=== PATIENT | female | born 1980 | race African-American/Black ===

== ENCOUNTER 2017-06-19 14:52 | Emergency (ER) | payer SELFPAY ==
[2017-06-19 15:24] LABS: Hematocrit 40.6 % (36.0-47.0); Mean Platelet Volume 10.1 fL (7.4-10.4); Red Blood Cell (RBC) Count 4.85 mill/uL (4.20-5.40); White Blood Cell (WBC) Count 9.1 thou/uL (4.8-10.8)
[2017-06-19 15:37] LABS: Neutrophil 35 % (42-75); Reactive Lymphocytes 8 % (0-10)
[2017-06-19 16:11] LABS: Bilirubin Negative (Negative); Blood, Urine Negative (Negative); Glucose, Urine (Dipstick) >=1000 mg/dL (Negative); Ketone, Urine Negative (Negative); Nitrite Negative (Negative); Protein, Urine (Dipstick) Negative (Neg-Trace)
[2017-06-19 16:29] LABS: ALT (SGPT) 19 U/L (8-55); AST (SGOT) 15 U/L (5-34); Alkaline Phosphatase 83 U/L (40-150); Anion Gap 10 mmol/L (10-20); BUN (Urea Nitrogen) 8 mg/dL (7.0-18.7); Bilirubin, Total 0.5 mg/dL (0.2-1.2); Calc. Creatinine Clearance 0 mL/min (70-130); Calcium 8.9 mg/dL (7.8-10.44); Carbon Dioxide 25 mmol/L (22-29); Chloride 103 mmol/L (98-107); Estimated GFR-MDRD Greater than 90; Globulin 2.8 g/dL (2.4-3.5); Lipase 23 U/L (8-78); Protein, Total 6.2 g/dL (6.0-8.3)
[2017-06-19] MEDS ORDERED: Ketorolac Tromethamine 60 MG/2 ML VIAL ONE (16:45)
[2017-06-19] MEDS ORDERED: Ondansetron ODT 8 MG TAB ONE (16:45)
== END 2017-06-19 17:21 | disposition home or self-care (01) ==
LOC: ERS 14:52
DX: R11.2 Nausea with vomiting, unspecified (principal); E11.9 Type 2 diabetes mellitus without complications
CPT/HCPCS: 36415; 36416; 80053; 81003; 81025; 83690; 85025; 96372; J1885

== ENCOUNTER 2017-09-22 09:41 | Emergency (ER) | payer SELFPAY | END 2017-09-22 11:24 | disposition home or self-care (01) | LOC: ERS 09:41 | DX: E11.65 Type 2 diabetes mellitus with hyperglycemia (principal); E11.40 Type 2 diabetes mellitus with diabetic neuropathy, unspecified | CPT/HCPCS: 36416; 99284 ==

== ENCOUNTER 2017-09-29 00:06 | Emergency (ER) | payer SELFPAY ==
[2017-09-29] MEDS ORDERED: Proparacaine 0.5% Opth 15 ML BOT ONE (03:18)
[2017-09-29] MEDS ORDERED: Fluorescein Opthalmic Strip ONE (03:20)
[2017-09-29 04:48] LABS: #Basophils 0.1 thou/uL (0.0-0.2); #Eosinphils 0.7 thou/uL (0.0-0.7); #Lymphocytes 3.5 thou/uL (1.20-3.40); #Monocytes 0.5 thou/uL (0.11-0.59); #Neutrophils 3.1 thou/uL (1.40-6.50); %Basophils 1.8 % (0.0-1.0); %Eosinophils 8.5 % (0.0-10.0); %Lymphocytes 44.7 % (21.0-51.0); Hemoglobin 12.8 g/dL (12.0-16.0); Mean Corpuscular Hemoglobin 27.1 pg (27.0-31.0); Mean Corpuscular Volume 84.9 fl (81.0-99.0); Mean Platelet Volume 10.2 fL (7.4-10.4); Platelet Count 220 thou/uL (130-400); RBC Distribution Width 14.3 % (11.5-14.5); Red Blood Cell (RBC) Count 4.73 mill/uL (4.20-5.40); White Blood Cell (WBC) Count 7.9 thou/uL (4.8-10.8)
[2017-09-29] MEDS ORDERED: Acetaminophen 500 MG TAB ONE (04:48)
[2017-09-29] MEDS ORDERED: Metoclopramide HCl 10 MG/2 ML VIAL ONE (04:48)
[2017-09-29 04:56] LABS: Anion Gap 13 mmol/L (10-20); BUN (Urea Nitrogen) 5 mg/dL (7.0-18.7); Calc. Creatinine Clearance 0 mL/min (70-130); Calcium 9.3 mg/dL (7.8-10.44); Carbon Dioxide 25 mmol/L (22-29); Chloride 103 mmol/L (98-107); Estimated GFR-MDRD Greater than 90; Glucose 323 mg/dL (70-105); Potassium 4.5 mmol/L (3.5-5.1); Sodium 136 mmol/L (136-145)
[2017-09-29 05:00] LABS: Pregnancy Test - Urine (BHCG) Negative (Negative); Pregu Control Background? CLEAR/WHITE (CLR/WHITE); Pregu Control Bar Appear? YES (CONTROL BAR); Specific Gravity 1.043 (1.002-1.036)
[2017-09-29] MEDS ORDERED: Ketorolac Tromethamine 30 MG/ML VIAL ONE (06:07)
[2017-09-29] MEDS ORDERED: Magnesium Sulfate 2 GM/100 ML BAG ONE (06:08)
--- NOTE | 2017-09-29 07:43 | CT ---
PRELIMINARY REPORT/[facility]/EMERGENCY AFTER HOURS PROCEDURE: EXAM: CT Head Without Intravenous Contrast CLINICAL HISTORY: 37 years old, female; Pain; Headache; Patient HX: F35 presents to ed C/O right eye pain. Pt reports t hat she woke up earlier tonight with the pain. Pt reports that her right eye is sensitive to light an d hurts more severely when she moves her eye or opens and closes her eyelid. No photophobia or proble ms with movement of her left eye. Pt denies any eye trauma or eye discharge. Pt states that she has h istory of headaches but this pain in her eye is much worse than she has ever previously experienced. Pt also reports head pain around eye. Pt does not wear contacts but has glasses. TECHNIQUE: Axial computed tomography images of the head/brain without intravenous contrast. COMPARISON: No relevant prior studies available. FINDINGS: Brain: Mild volume loss No hemorrhage. No significant white matter disease. No edema. Ventricles: Unremarkable. No ventriculomegaly. Bones/joints: Unremarkable. No acute fracture. Soft tissues: Unremarkable. Sinuses: Unremarkable as visualized. No acute sinusitis. Mastoid air cells: Unremarkable as visualized. No mastoid effusion. IMPRESSION: No intracranial hemorrhage.Please see discussion above. Thank you for allowing us to participate in the care of your patient. Dictated and Authenticated by: Anand Javier MD 09/29/2017 4:43 AM Central Time ([place] & [place]) FINAL REPORT CT BRAIN WITHOUT CONTRAST: I agree with the preliminary report given by Dr. Anand Javier of [facility]. POS: [facility]
== END 2017-09-29 08:05 | disposition home or self-care (01) ==
LOC: ERS 00:06
DX: G43.909 Migraine, unspecified, not intractable, without status migrainosus (principal); E11.9 Type 2 diabetes mellitus without complications; Z79.84 Long term (current) use of oral hypoglycemic drugs
CPT/HCPCS: 36415; 70450; 80048; 81025; 85025; 96361; 96365; 96375; J1885; J2765; J3475

== ENCOUNTER 2018-09-16 14:21 | Outpatient (CLI) | payer MEDICAID ==
--- NOTE | 2018-09-16 15:38 | ULT ---
TRANSABDOMINAL AND TRANSVAGINAL PELVIC ULTRASOUND: INDICATION: Pelvic pain. TECHNIQUE: Gallagher scale, color Doppler, and spectral Doppler images were obtained of the pelvis. FINDINGS: The uterus measures 9.3 x 5.9 x 5.2 cm. There is a 2.5 cm fibroid seen within the subendometrial lay er of the posterior uterine body that has intervally grown since the comparison examination where it measured up to 1.6 cm. The endometrial stripe measures 7 mm. The right ovary measures 4.4 x 3 x 2.4 cm. The left ovary measures 2.2 x 2.6 x 2.6 cm. There is nor mal flow to both ovaries. No free fluid is evident. IMPRESSION: Slight interval enlargement of the subendometrial fibroid involving the posterior uterine body. POS: [facility]
== END 2018-09-16 14:22 | disposition home or self-care (01) ==
LOC: BICULT 14:21
PROVIDERS: ATTEND Advanced Practice Midwife
DX: Z01.419 Encounter for gynecological examination (general) (routine) without abnormal findings (principal)
CPT/HCPCS: 76856

== ENCOUNTER 2018-10-22 13:30 | Outpatient (CLI) | payer MEDICAID | END 2018-10-22 13:31 | disposition home or self-care (01) | LOC: BICMAMMO 13:30 | PROVIDERS: ATTEND Advanced Practice Midwife | DX: N64.4 Mastodynia (principal) | CPT/HCPCS: 77066; G0279 ==

== ENCOUNTER 2019-02-26 11:36 | Emergency (ER) | payer MEDICAID, OTHER ==
[2019-02-26 12:21] LABS: #Eosinphils 0.1 thou/uL (0.0-0.7); #Lymphocytes 1.4 thou/uL (1.20-3.40); #Monocytes 0.4 thou/uL (0.11-0.59); #Neutrophils 6.2 thou/uL (1.40-6.50); %Basophils 0.4 % (0.0-1.0); %Eosinophils 1.7 % (0.0-10.0); %Lymphocytes 16.9 % (21.0-51.0); %Monocytes 4.9 % (0.0-10.0); %Neutrophils 76.2 % (42.0-75.0); Hemoglobin 13.9 g/dL (12.0-16.0); Mean Corpuscular HGB CONC 33.6 g/dL (32.0-36.0); Mean Corpuscular Hemoglobin 28.9 pg (27.0-31.0); Mean Platelet Volume 10.3 fL (7.4-10.4); Platelet Count 184 thou/uL (130-400); RBC Distribution Width 12.8 % (11.5-14.5); Red Blood Cell (RBC) Count 4.81 mill/uL (4.20-5.40); White Blood Cell (WBC) Count 8.1 thou/uL (4.8-10.8)
[2019-02-26] MEDS ORDERED: Lidocaine Viscous Sol 2% 15 ml UD Cup ONE (12:22)
[2019-02-26] MEDS ORDERED: Ondansetron ODT 8 MG TAB ONE (12:22)
[2019-02-26] MEDS ORDERED: Mag-Al 1200 mg/1200 mg/30 ML UDCUP ONE (12:22)
[2019-02-26 12:27] LABS: BHCG - Serum Negative (NEGATIVE); Pregs Control Background? CLEAR/WHITE (CLR/WHITE); Pregs Control Bar Appear? YES (CONTROL BAR)
[2019-02-26 12:45] LABS: ALT (SGPT) 17 U/L (8-55); AST (SGOT) 14 U/L (5-34); Albumin 3.5 g/dL (3.5-5.0); Alkaline Phosphatase 87 U/L (40-150); Anion Gap 15 mmol/L (10-20); BUN (Urea Nitrogen) 7 mg/dL (7.0-18.7); Bilirubin, Total 1.3 mg/dL (0.2-1.2); Calc. Creatinine Clearance 0 mL/min (70-130); Calcium 8.8 mg/dL (7.8-10.44); Carbon Dioxide 22 mmol/L (22-29); Chloride 106 mmol/L (98-107); Estimated GFR-MDRD Greater than 90; Globulin 2.9 g/dL (2.4-3.5); Glucose 277 mg/dL (70-105); Potassium 4.4 mmol/L (3.5-5.1); Protein, Total 6.4 g/dL (6.0-8.3); Sodium 139 mmol/L (136-145)
== END 2019-02-26 14:10 | disposition home or self-care (01) ==
LOC: ERS 11:36
DX: K29.70 Gastritis, unspecified, without bleeding (principal); E11.9 Type 2 diabetes mellitus without complications; Z79.84 Long term (current) use of oral hypoglycemic drugs
CPT/HCPCS: 36415; 80053; 84703; 85025; 96372; J0500

== ENCOUNTER 2019-04-20 07:49 | Inpatient (IN) | payer OTHER ==
[2019-04-20] MEDS ORDERED: Ibuprofen 200 MG TAB ONE (08:04)
[2019-04-20] MEDS ORDERED: Acetaminophen 500 MG TAB ONE (08:04)
[2019-04-20 08:36] LABS: Hemoglobin 12.3 g/dL (12.0-16.0); Mean Corpuscular HGB CONC 33.8 g/dL (32.0-36.0); Mean Corpuscular Hemoglobin 28.7 pg (27.0-31.0); Mean Corpuscular Volume 84.8 fL (78.0-98.0); Mean Platelet Volume 10.5 fL (7.4-10.4); Platelet Count 152 thou/uL (130-400); RBC Distribution Width 12.7 % (11.5-14.5); White Blood Cell (WBC) Count 11.5 thou/uL (4.8-10.8)
[2019-04-20 08:54] LABS: ALT (SGPT) 16 U/L (8-55); AST (SGOT) 16 U/L (5-34); Albumin 3.4 g/dL (3.5-5.0); Alkaline Phosphatase 137 U/L (40-150); Anion Gap 14 mmol/L (10-20); BUN (Urea Nitrogen) 7 mg/dL (7.0-18.7); Bilirubin, Total 0.9 mg/dL (0.2-1.2); Calc. Creatinine Clearance 0 mL/min (70-130); Carbon Dioxide 21 mmol/L (22-29); Chloride 104 mmol/L (98-107); Estimated GFR-MDRD Greater than 90; Globulin 3.3 g/dL (2.4-3.5); Glucose 298 mg/dL (70-105); Potassium 3.6 mmol/L (3.5-5.1); Protein, Total 6.7 g/dL (6.0-8.3); Sodium 135 mmol/L (136-145)
[2019-04-20 08:57] LABS: Band 22 % (5-11); Lymphocytes 9 % (21-51); MDiff Complete? YES; Monocytes 1 % (0-10); Neutrophil 68 % (42-75); RBC Morphology Normal
[2019-04-20 10:19] LABS: Bilirubin Negative (Negative); Blood, Urine 3+ (Negative); Clarity Clear (Clear); Glucose, Urine (Dipstick) Greater than 1000 mg/dL (Negative); Leukocyte 75 Leu/uL (Negative); Nitrite Negative (Negative); Protein, Urine (Dipstick) 30 mg/dL (Neg-Trace); RBC/HPF Greater than 50 HPF (0-3); Squamous Epithelial 0-3 HPF (0-3)
--- NOTE | 2019-04-20 10:21 | RAD ---
CHEST 1 VIEW: Date: 04/20/19 HISTORY: Fever, body aches, hyperventilation, dyspnea. FINDINGS: Bilateral vascular congestion. Heart size is within upper range of normal limits. IMPRESSION: Upper range of normal size heart. Prominent bilateral vascular congestion, which appears to be somewh at more congested than a prior 2013 study. No confluent pneumonia or overt edema. POS: OFF
[2019-04-20 10:30] LABS: Bacteria/HPF Rare-Few HPF (None Seen)
[2019-04-20 10:45] LABS: CKMB 1.3 ng/mL (0-6.6)
--- NOTE | 2019-04-20 11:43 | CT ---
Exam: CT angiogram of the chest HISTORY: Dyspnea. Pain. COMPARISON: None TECHNIQUE: CT angiogram of the chest is performed in the axial plane. Three-dimensional reformatted i mages are submitted for interpretation FINDINGS: Mediastinum: No mass, lymphadenopathy or hematoma. HEART: Normal size. No significant pericardial fluid. Aorta: No aneurysm or dissection Upper solid abdominal viscera: No abnormal enhancement. Nonspecific hypodensity likely representing a upper normal gastrohepatic lymph node measuring 0.7 x 1.0 cm Trachea and central bronchi: Patent Pleural spaces: No effusion Lung parenchyma: No masses or consolidation. Dependent atelectatic changes are noted. Pneumothorax: None Osseous structures: No lytic or blastic lesions Pulmonary arteries:Suboptimal evaluation the pulmonary arterial system due to poor timing of contrast bolus. Adequate contrast opacification of the central pulmonary arterial system, without filling defect. Evaluation the lobar, segmental and subsegmental arteries is limited. IMPRESSION: 1. Suboptimal evaluation pulmonary arterial system. No obvious central pulmonary artery embolism.
[2019-04-20] MEDS ORDERED: Piperacillin/Tazobactam 4.5 GM VIAL ONE (12:41)
[2019-04-20] MEDS ORDERED: Dextrose 5% in Water 1,000 ML IV PRN (13:37)
[2019-04-20] MEDS ORDERED: Dextrose 50% Abboject 50 ML SYRINGE SLOW IVP PRN (13:37)
[2019-04-20] MEDS ORDERED: Sodium Chloride 0.9% 1,000 ML IV SCH (13:45)
[2019-04-20] MEDS ORDERED: ISOVUE-370 76%-LOCM 1 ML ONE (13:56)
[2019-04-20 14:09] LABS: BHCG - Serum Negative (NEGATIVE); Pregs Control Background? CLEAR/WHITE (CLR/WHITE); Pregs Control Bar Appear? YES (CONTROL BAR)
[2019-04-20 14:14] LABS: Troponin I 0.052 ng/mL (< 0.028)
[2019-04-20] MEDS ORDERED: Ibuprofen 600 MG TAB PO PRN (14:14)
[2019-04-20] MEDS ORDERED: Senokot S 8.6-50 MG TAB PO PRN (14:45)
[2019-04-20 15:43] VITALS: BMI 45.8
[2019-04-20] MEDS: Piperacillin/Tazobactam 3.375 GM in Sodium Chloride 0.9% 100 ML IVPB SCH (18:03)
[2019-04-20] MEDS: Acetaminophen 325 MG TAB PO PRN (18:03)
[2019-04-20] MEDS: HumaLOG 300 UNITS/3 ML VIAL SC PRN (18:21)
[2019-04-20] MEDS: traMADol HCl 50 MG TAB PO PRN (20:22)
--- NOTE | 2019-04-20 20:35 | HP ---
CHIEF COMPLAINT: Fever, generalized body aches and pains. HISTORY OF PRESENT ILLNESS: The patient is a 38-year-old female with history of diabetes, who presents to the hospital with complaints of generalized body aches and pains and fever for the past 3 days. 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 The following day, she had a fever of 102.0. Denies any nausea, vomiting, or diarrhea. She did have some chills. No cough. No rhinorrhea. No sore throat. She also states that she has been having a low appetite; however, she is able to keep her liquids down. She has had no dysuria or any urinary symptoms. No chest pain, however, she did have some shortness of breath today, which concerned her, so she came into the hospital for further evaluation. She does have a 3-year-old child, who had some rhinorrhea. PAST MEDICAL HISTORY: Diabetes. PAST SURGICAL HISTORY: Two C-sections and tonsillectomy. ALLERGIES: NO KNOWN DRUG ALLERGIES. MEDICATIONS: She takes glipizide, does not know the dose. REVIEW OF SYSTEMS: All negative except for the ones mentioned above in the HPI. FAMILY HISTORY: Mother had cancer and hypertension. LABORATORY RESULTS: As of the following; WBCs of 11.5, however her bands were 22. Her ESR was 82. Chemistry; sodium of 135, potassium of 3.6, BUN of 7, creatinine 0.68, glucose of 298. Lactic acid was 1.3. Troponin initially was 0.061. BNP was 62.7. test was negative. LFTs were normal. Her urinalysis indicated a leukocyte esterase of 75, wbc's of 4 to 6, rare bacteria, no squamous epithelial cells. She did have a CTA, this was a suboptimal study, however, there was no pneumonia noted. No obvious central pulmonary embolism was noted. EKG, she had no ST-elevation or depression. PHYSICAL EXAMINATION: VITAL SIGNS: As of the following; temperature of 98.8, heart rate of 110, blood pressure of 96/60, and 100% on 2 L. GENERAL: She is awake, alert, and oriented x3. Does not appear in any distress. HEENT: Normocephalic and atraumatic. No lymphadenopathy noted. Pupils are equal and reactive to light. CV: S1 and S2 present. No murmurs, rubs, or gallops. LUNGS: Clear to auscultation. No rhonchi or wheezes noted. ABDOMEN: Soft and nontender. Bowel sounds are present x2. EXTREMITIES: No edema. Pedal pulses are present x2. NEUROVASCULAR: There were no focal deficits noted. Lower extremity; she does have some pain upon palpation to her right and left lower back area. SKIN: No cuts, lesions, or bruises noted. ASSESSMENT AND PLAN: The patient is a 38-year-old female, who presents to the hospital with complaints of generalized body aches and pains and fever. 1. Sepsis. She does have leukocytosis. She was tachycardic and she had a fever at home, unknown etiology. We will do blood cultures. Urine culture is pending. We will treat her with broad-spectrum antibiotics for now. This also could be just a viral infection. 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 We will continue to monitor. 2. Diabetes. We will put on sliding scale insulin and check Accu-Cheks before meals and at bedtime. 3. Obesity, educated on weight loss diet and exercise. 4. Deep venous thrombosis prophylaxis. We will put the patient on some SCDs and Lovenox. Job ID: [id number]
[2019-04-20] MEDS ORDERED: Ketorolac Tromethamine 30 MG/ML VIAL IVP SCH (23:00)
[2019-04-21] MEDS: Piperacillin/Tazobactam 3.375 GM in Sodium Chloride 0.9% 100 ML IVPB SCH ×4 (00:35→22:00)
[2019-04-21] MEDS ORDERED: Ibuprofen 600 MG TAB PO PRN (05:00)
[2019-04-21 06:14] LABS: #Eosinphils 0.1 thou/uL (0.0-0.7); #Lymphocytes 1.9 thou/uL (1.20-3.40); #Neutrophils 5.8 thou/uL (1.40-6.50); %Basophils 0.2 % (0.0-1.0); %Eosinophils 0.6 % (0.0-10.0); %Lymphocytes 21.9 % (21.0-51.0); %Monocytes 10.8 % (0.0-10.0); %Neutrophils 66.4 % (42.0-75.0); Hemoglobin 10.9 g/dL (12.0-16.0); Mean Corpuscular HGB CONC 31.8 g/dL (32.0-36.0); Mean Corpuscular Hemoglobin 27.2 pg (27.0-31.0); Mean Corpuscular Volume 85.7 fL (78.0-98.0); Mean Platelet Volume 10.7 fL (7.4-10.4); Platelet Count 154 thou/uL (130-400); RBC Distribution Width 12.6 % (11.5-14.5); White Blood Cell (WBC) Count 8.8 thou/uL (4.8-10.8)
[2019-04-21 06:38] LABS: ALT (SGPT) 14 U/L (8-55); AST (SGOT) 23 U/L (5-34); Alkaline Phosphatase 94 U/L (40-150); Anion Gap 12 mmol/L (10-20); BUN (Urea Nitrogen) 6 mg/dL (7.0-18.7); Bilirubin, Total 0.7 mg/dL (0.2-1.2); Calc. Creatinine Clearance 233 mL/min (70-130); Calcium 8.5 mg/dL (7.8-10.44); Carbon Dioxide 23 mmol/L (22-29); Chloride 105 mmol/L (98-107); Estimated GFR-MDRD Greater than 90; Globulin 3.1 g/dL (2.4-3.5); Glucose 226 mg/dL (70-105); Potassium 3.9 mmol/L (3.5-5.1); Protein, Total 6.1 g/dL (6.0-8.3); Sodium 136 mmol/L (136-145)
[2019-04-21 07:45] LABS: Hemoglobin A1c 10.4 % (4.0-6.0)
[2019-04-21] MEDS ORDERED: Insulin Glargine 5 UNITS in Pre-Filled Syringe 1 EACH SC SCH (09:29)
[2019-04-21] MEDS: glipiZIDE 10 MG TAB PO SCH (09:32)
[2019-04-21] MEDS: Enoxaparin Sodium 40 MG/0.4 ML SYRINGE SC SCH (09:32)
[2019-04-21] MEDS: Aspirin 81 mg Enteric Coated Tablet PO SCH (09:32)
[2019-04-21] MEDS ORDERED: Famotidine 20 MG TAB PO SCH (09:45)
[2019-04-21] MEDS: Ketorolac Tromethamine 30 MG/ML VIAL IVP PRN ×2 (09:59→16:51)
--- NOTE | 2019-04-21 11:27 | PDOC.HOSPP ---
- Subjective Encounter Date: 04/21/19 Encounter Time: 10:15 Subjective: pt up in bed is diaphoretic. - Objective Vital Signs & Weight: Vital Signs (12 hours) Temp Pulse Resp BP BP Pulse Ox 04/21/19 09:27 99.1 F 109 H 18 137/92 H 98 04/21/19 03:00 97.1 F L 101 H 18 125/72 93 L Weight Weight 283 lb 14.4 oz I&O: 04/20/19 04/21/19 04/22/19 06:59 06:59 06:59 Intake Total 450 Output Total 550 Balance -100 Result Diagrams: 04/21/19 05:20 04/21/19 05:20 Additional Labs: Accuchecks 04/21/19 04/20/19 04/20/19 05:48 20:44 17:29 POC Glucose 213 H 234 H 199 H ROS - Review of Systems Respiratory: denies: cough, dry, shortness of breath, hemoptysis, SOB with excertion, pleuritic pain, sputum, wheezing, other Cardiovascular: denies: chest pain, palpitations, orthopnea, paroxysmal noc. dyspnea, edema, light headedness, other Musculoskeletal: reports: back pain - Medication Medications: Active Medications Generic Name Dose Route Start Last Admin Trade Name Freq PRN Reason Stop Dose Admin Acetaminophen 650 mg 04/20/19 14:45 04/20/19 18:03 Tylenol PO 650 mg Q4H PRN Administration Headache/Fever/Mild Pain (1-3) Aspirin 81 mg 04/21/19 09:00 04/21/19 09:32 Ecotrin PO 81 mg DAILY JESSEE Administration Enoxaparin Sodium 40 mg 04/21/19 09:00 04/21/19 09:32 Lovenox SC 40 mg 0900 JESSEE Administration Famotidine 20 mg 04/21/19 09:45 04/21/19 09:59 Pepcid PO 04/21/19 11:45 20 mg NOW JESSEE Administration Glipizide 20 mg 04/21/19 09:00 04/21/19 09:32 Glucotrol PO 20 mg DAILY JESSEE Administration Piperacillin Sod/Tazobactam 100 mls @ 200 mls/hr 04/20/19 18:00 04/21/19 05: 49 Sod 3.375 gm/ Sodium Chloride IVPB 100 mls Q6HR JESSEE Administration Insulin Human Lispro 0 units 04/20/19 13:37 04/20/19 18:21 Humalog SC 2 units .MILD SLIDING SCALE PRN Administration Mild Correctional Scale Ketorolac Tromethamine 15 mg 04/21/19 09:20 04/21/19 09:59 Toradol IVP 15 mg Q6H PRN Administration Moderate Pain (4-6) Sodium Chloride 10 ml 04/21/19 09:00 04/21/19 10:00 Flush - Normal Saline IVF 10 ml Q12HR JESSEE Administration Tramadol HCl 50 mg 04/20/19 19:35 04/20/19 20:22 Ultram PO 50 mg Q4H PRN Administration Moderate Pain (4-6) - Exam Heart: negative: RRR, no murmur, no gallops, no rubs, normal peripheral pulses, irregular, diminshed peripheral pulses, murmur present, II/IV, III/IV Respiratory: negative: CTAB, no wheezes, no rales, no ronchi, normal chest expansion, no tachypnea, normal percussion, rales, rhonchi, tachypneic, wheezes Gastrointestinal: negative: soft, non-tender, non-distended, normal bowel sounds , no palpable masses, no hepatomegaly, no splenomegaly, no bruit, no guarding, no rigidity, tender to palpation, distended, diminished bowl sounds, voluntary guarding Hosp A/P (1) Sepsis Code(s): A41.9 - SEPSIS, UNSPECIFIED ORGANISM Status: Acute (2) UTI (urinary tract infection) Status: Acute (3) Bacteremia Code(s): R78.81 - BACTEREMIA Status: Acute - Plan will continue abx for onw, will get ct abd/pel. will consult ID. will start her on iv fluids.
[2019-04-21] MEDS: Sodium Chloride 0.9% 1,000 ML IV SCH (11:57)
[2019-04-21] MEDS: HumaLOG 300 UNITS/3 ML VIAL SC PRN (11:57)
--- NOTE | 2019-04-21 13:32 | CT ---
EXAM: CT ABDOMEN AND PELVIS HISTORY: Fever. Bacteremia. Nausea. COMPARISON: None. Procedure: Multiple contiguous axial images were obtained and a CT of the abdomen and pelvis with IV contrast. C oronal reformats were performed. FINDINGS: Lower Chest: Small bilateral effusions. Bibasilar consolidation may be due to atelectasis, aspiration or pneumonia Vessels: Normal caliber aorta. Heart: Normal heart size. No significant pericardial fluid Abdomen: Portal vein:Patent Gallbladder: No calcified gallstones. Normal caliber wall. Liver: within normal limits. Pancreas: within normal limits. Spleen: within normal limits. Adrenals: within normal limits. Kidneys: Symmetric enhancement. No obstructive uropathy. Peritoneum: No ascites or free air, no fluid collection. Bowel: No evidence of small bowel obstruction. Ileocecal junction is normal. Normal caliber appendix. Scattered diverticula. No diverticulitis. Mesentery and Retroperitoneum: No enlarged mesenteric or retroperitoneal lymph nodes. Abdominal Wall: Small umbilical hernia containing mesenteric fat Pelvis: Reproductive Organs: Uterus is unremarkable. Left adnexa is unremarkable. There is a hypodensity eman ating from the right adnexa with attenuation coefficient of 7.8 Hounsfield units. 3.6 x 3.3 cm right ovarian cyst is favored. Pelvis: Small amount of free fluid in the pelvis. Bladder: within normal limits. Bones: within normal limits. IMPRESSION: 1. No acute abnormality in the abdomen or pelvis 2. Normal caliber appendix 3. No evidence of a small bowel obstruction 4. Right ovarian cyst. Follow-up ultrasound in 6-8 weeks to ensure resolution. 5. Bilateral pleural effusions with lung parenchymal consolidation likely due to atelectasis, aspirat ion or pneumonia.
[2019-04-21] MEDS ORDERED: Ondansetron PF 4 MG/2 ML Vial IVP PRN (13:55)
[2019-04-21] MEDS ORDERED: Iopamidol 370 76% 100 ML VIAL ONE (16:15)
[2019-04-21] MEDS ORDERED: Lidocaine 2% Viscous Solution 20 ML, Aluminum & Magnesium Hydroxide 30 ML, Donnatal Eli... SSW SCH (18:00)
--- NOTE | 2019-04-21 18:34 | CON ---
DATE OF CONSULTATION: REASON FOR CONSULT: Bacteremia. HISTORY OF PRESENT ILLNESS: A 38-year-old, who has a history of type 2 diabetes and admitted with general malaise, myalgias, and fever for the past 3 days before admission. She had increased urinary frequency, but denies dysuria, but she did have flank pain on both sides. Some headaches. No visual symptoms. No vomiting, hematemesis, or melena. No chest pain. No diarrhea. No bleeding. No neurological symptoms. PAST MEDICAL HISTORY: Type 2 diabetes. PAST SURGICAL HISTORY: . ALLERGIES: NONE. FAMILY HISTORY: Cancer, hypertension. CURRENT MEDICATIONS: 1. Tylenol. 2. Ecotrin. 3. Lovenox. 4. Pepcid. 5. Glucotrol. 6. Insulin. 7. Ketorolac. 8. Zosyn. PHYSICAL EXAMINATION: VITAL SIGNS: T-max 99, blood pressure 150/95, pulse 95, respirations 16, and O2 saturation 97. GENERAL: Voiding in the toilet. SKIN: Normal. No lymphadenopathy. Peripheral IV access. HEENT: Ocular movements conjugate. Oral cavity normal. NECK: Supple. LUNGS: Symmetric. Clear breath sounds. HEART: S1 and S2 regular rate. ABDOMEN: Soft, not distended, with mild tenderness in mid abdominal area, right and left side. No rebound tenderness. : Bladder not distended. EXTREMITIES: No joint inflammatory activity. Moves extremities equally. NEUROLOGIC: Cognitive function appears to be intact. LABORATORY DATA: White cell count is 11.5 and now 8.8, hemoglobin 10.9, platelets 154 with normal differential, and hemoglobin A1c 10.4. Liver profile normal. Albumin 3.0. Urinalysis with 4 to 6 wbc's and cultures with E. coli in one sample of urine culture. The blood culture with E. coli as well, pending susceptibilities. IMAGING STUDIES: Includes an abdomen and pelvis CT with no significant findings , except for some pleural effusions and some atelectases. CT angio with suboptimal evaluation of pulmonary arterial system, but no obvious PE. ASSESSMENT AND PLAN: General malaise with Escherichia coli pyelonephritis, evaluate postvoid residual to rule out urinary retention, and wait on final susceptibilities to work on discharge planning per hopefully on oral antimicrobial therapy for 7 to 10 days as long as she has no urinary retention. No other structural abnormalities detected. The patient with the usual risk factor for premenopausal UTI, and does not need prophylaxis at this point in time yet. Job ID: [id number] MTDD
[2019-04-21] MEDS: Famotidine 20 MG TAB PO SCH (22:00)
[2019-04-22] MEDS: Ketorolac Tromethamine 30 MG/ML VIAL IVP PRN ×2 (00:10→11:11)
[2019-04-22] MEDS: Piperacillin/Tazobactam 3.375 GM in Sodium Chloride 0.9% 100 ML IVPB SCH (04:51)
[2019-04-22] MEDS: Sodium Chloride 0.9% 1,000 ML IV SCH (04:52)
[2019-04-22] MEDS: Aspirin 81 mg Enteric Coated Tablet PO SCH (08:51)
[2019-04-22] MEDS: glipiZIDE 10 MG TAB PO SCH (08:51)
[2019-04-22] MEDS: Famotidine 20 MG TAB PO SCH (08:52)
[2019-04-22] MEDS: Enoxaparin Sodium 40 MG/0.4 ML SYRINGE SC SCH (08:52)
[2019-04-22] MEDS: Insulin Glargine 5 UNITS in Pre-Filled Syringe 1 EACH SC SCH (08:52)
[2019-04-22 10:15] LABS: Troponin I 0.018 ng/mL (< 0.028)
--- NOTE | 2019-04-22 11:37 | PDOC.HOSPP ---
- Subjective Encounter Date: 04/22/19 Encounter Time: 11:30 Subjective: pt up in bed complains of nausea - Objective Vital Signs & Weight: Vital Signs (12 hours) Temp Pulse Resp BP Pulse Ox 04/22/19 08:00 98 04/22/19 07:51 98.9 F 93 16 129/83 98 04/22/19 03:46 99.7 F H 103 H 17 162/79 H 95 04/22/19 00:00 99.1 F Weight Weight 289 lb 1.6 oz I&O: 04/21/19 04/22/19 04/23/19 06:59 06:59 06:59 Intake Total 450 1910 Output Total 550 1300 Balance -100 610 Result Diagrams: 04/21/19 05:20 04/21/19 05:20 Additional Labs: Accuchecks 04/22/19 04/21/19 04/21/19 05:51 20:17 17:19 POC Glucose 248 H 243 H 171 H 04/21/19 11:26 POC Glucose 209 H ROS - Review of Systems Respiratory: denies: cough, dry, shortness of breath, hemoptysis, SOB with excertion, pleuritic pain, sputum, wheezing, other Cardiovascular: denies: chest pain, palpitations, orthopnea, paroxysmal noc. dyspnea, edema, light headedness, other Gastrointestinal: reports: nausea Genitourinary: denies: dysuria, frequency, incontinence, hematuria, retention, other - Medication Medications: Active Medications Generic Name Dose Route Start Last Admin Trade Name Freq PRN Reason Stop Dose Admin Acetaminophen 650 mg 04/20/19 14:45 04/20/19 18:03 Tylenol PO 650 mg Q4H PRN Administration Headache/Fever/Mild Pain (1-3) Aspirin 81 mg 04/21/19 09:00 04/22/19 08:51 Ecotrin PO 81 mg DAILY JESSEE Administration Enoxaparin Sodium 40 mg 04/21/19 09:00 04/22/19 08:52 Lovenox SC 40 mg 0900 JESSEE Administration Famotidine 20 mg 04/21/19 21:00 04/22/19 08:52 Pepcid PO 20 mg BID JESSEE Administration Glipizide 20 mg 04/21/19 09:00 04/22/19 08:51 Glucotrol PO 20 mg DAILY JESSEE Administration Insulin Glargine 5 units/ 0.05 mls @ 0 mls/hr 04/22/19 09:00 04/22/19 08:52 Miscellaneous Medication SC 0.05 mls QAM JESSEE Administration Sodium Chloride 1,000 mls @ 70 mls/hr 04/21/19 11:30 04/22/19 04:52 Normal Saline 0.9% IV 1,000 mls .[id number] JESSEE Administration Insulin Human Lispro 0 units 04/20/19 13:37 04/21/19 11:57 Humalog SC 3 units .MILD SLIDING SCALE PRN Administration Mild Correctional Scale Ketorolac Tromethamine 15 mg 04/21/19 09:20 04/22/19 00:10 Toradol IVP 15 mg Q6H PRN Administration Moderate Pain (4-6) Ondansetron HCl 4 mg 04/21/19 13:55 04/21/19 15:56 Zofran IVP 4 mg Q6H PRN Administration Nausea/Vomiting Sodium Chloride 10 ml 04/21/19 09:00 04/22/19 08:54 Flush - Normal Saline IVF Not Given Q12HR JESSEE Tramadol HCl 50 mg 04/20/19 19:35 04/20/19 20:22 Ultram PO 50 mg Q4H PRN Administration Moderate Pain (4-6) - Exam Neck: negative: supple, symmetric, no JVD, no thyromegaly, no lymphadenopathy, no carotid bruit, JVD Heart: negative: RRR, no murmur, no gallops, no rubs, normal peripheral pulses, irregular, diminshed peripheral pulses, murmur present, II/IV, III/IV Respiratory: negative: CTAB, no wheezes, no rales, no ronchi, normal chest expansion, no tachypnea, normal percussion, rales, rhonchi, tachypneic, wheezes Hosp A/P (1) Sepsis Code(s): A41.9 - SEPSIS, UNSPECIFIED ORGANISM Status: Acute (2) UTI (urinary tract infection) Status: Acute (3) Bacteremia Code(s): R78.81 - BACTEREMIA Status: Acute - Plan will continue abx for onw, will get ct abd/pel. will consult ID. will start her on iv fluids. 04/22 will change her abx to levaquin. echo does not show any acute process. will add protonix.
[2019-04-22] MEDS ORDERED: Saccharomyces boulardii 250 MG CAP PO SCH (12:30)
[2019-04-22] MEDS: HumaLOG 300 UNITS/3 ML VIAL SC PRN ×2 (13:08→21:30)
[2019-04-22] MEDS: traMADol HCl 50 MG TAB PO PRN (20:02)
[2019-04-22] MEDS: Pantoprazole 40 MG VIAL IVP SCH (20:04)
[2019-04-23] MEDS: Acetaminophen 325 MG TAB PO PRN (08:29)
[2019-04-23] MEDS: Aspirin 81 mg Enteric Coated Tablet PO SCH (08:29)
[2019-04-23] MEDS: glipiZIDE 10 MG TAB PO SCH (08:29)
[2019-04-23] MEDS: Enoxaparin Sodium 40 MG/0.4 ML SYRINGE SC SCH (08:29)
[2019-04-23] MEDS: Pantoprazole 40 MG VIAL IVP SCH (08:30)
[2019-04-23] MEDS ORDERED: Saccharomyces boulardii 250 MG CAP PO SCH (09:00)
[2019-04-23] MEDS: Insulin Glargine 5 UNITS in Pre-Filled Syringe 1 EACH SC SCH (10:40)
[2019-04-23] MEDS: HumaLOG 300 UNITS/3 ML VIAL SC PRN (12:11)
[2019-04-23 12:38] VITALS: TEMP 98.4
--- NOTE | 2019-04-23 15:22 | EKG ---
Test Reason : Blood Pressure : / mmHG Vent. Rate : 109 BPM Atrial Rate : 109 BPM P-R Int : 168 ms QRS Dur : 102 ms QT Int : 368 ms P-R-T Axes : 053 -14 038 degrees QTc Int : 495 ms Sinus tachycardia Cannot rule out Inferior infarct , age undetermined Abnormal ECG Confirmed by VANESSA IRVIN DO ([id number]), photo editor LAUREN FUENTES ([id number]) on 04/23/2019 3:21:32 PM Referred By: Confirmed By:VANESSA IRVIN DO
[2019-04-23 16:37] VITALS: BP 138/91
== END 2019-04-23 16:48 | disposition home or self-care (01) | DRG 872 ==
LOC: ERS 07:49 → 2NO 12:46
PROVIDERS: ADMIT Internal Medicine; ATTEND Internal Medicine
DX: A41.9 Sepsis, unspecified organism (principal); N12 Tubulo-interstitial nephritis, not specified as acute or chronic; Z68.42 Body mass index [BMI] 45.0-49.9, adult; R35.0 Frequency of micturition; E11.9 Type 2 diabetes mellitus without complications; B96.20 Unspecified Escherichia coli [E. coli] as the cause of diseases classified elsewhere; E66.9 Obesity, unspecified; Z79.4 Long term (current) use of insulin; Z79.899 Other long term (current) drug therapy
CPT/HCPCS: 36415; 36416; 71045; 71275; 74177; 80053; 81003; 81015; 82533; 82553; 83036; 83605; 83690; 83880; 84484; 84703; 85025; 85652; 87040; 87077; 87086; 87149; 87186; 87804; 93005; 93306; 96361; 96365; 96367; C9113; J1650; J1815; J1885; J1956; J2405; J2543; J3370; J3490; Q9966; Q9967

== ENCOUNTER 2019-09-11 18:51 | Emergency (ER) | payer OTHER ==
[~2019-09-11 18:51] MED LIST: Iopamidol-370 76% 500 ML 1 ML ONE
[2019-09-11 19:29] LABS: Bilirubin Negative (Negative); Blood, Urine Negative (Negative); Clarity Clear (Clear); Glucose, Urine (Dipstick) Greater than 1000 mg/dL (Negative); Leukocyte Negative Leu/uL (Negative); Nitrite Negative (Negative); Protein, Urine (Dipstick) Negative (Neg-Trace); Urobilinogen Normal mg/dL (Less than 2)
[2019-09-11] MEDS ORDERED: Fentanyl 100 MCG/2 ML VIAL ONE (19:38)
[2019-09-11] MEDS ORDERED: Ondansetron PF 4 MG/2 ML Vial ONE (19:38)
[2019-09-11 19:45] LABS: BHCG - Serum Negative (NEGATIVE); Pregs Control Background? CLEAR/WHITE (CLR/WHITE); Pregs Control Bar Appear? YES (CONTROL BAR)
[2019-09-11 19:55] LABS: #Basophils 0.1 thou/uL (0.0-0.2); #Eosinphils 0.4 thou/uL (0.0-0.7); #Lymphocytes 4.2 thou/uL (1.20-3.40); #Monocytes 0.5 thou/uL (0.11-0.59); %Basophils 1.2 % (0.0-1.0); %Eosinophils 4.7 % (0.0-10.0); %Lymphocytes 45.3 % (21.0-51.0); %Monocytes 5.3 % (0.0-10.0); %Neutrophils 43.5 % (42.0-75.0); Hemoglobin 12.3 g/dL (12.0-16.0); Mean Corpuscular HGB CONC 31.4 g/dL (32.0-36.0); Mean Corpuscular Hemoglobin 24.5 pg (27.0-31.0); Mean Corpuscular Volume 78.1 fL (78.0-98.0); RBC Distribution Width 14.3 % (11.5-14.5); White Blood Cell (WBC) Count 9.2 thou/uL (4.8-10.8)
[2019-09-11 19:56] LABS: Mean Platelet Volume 11.2 fL (7.4-10.4); Platelet Count 248 thou/uL (130-400)
[2019-09-11 20:01] LABS: ALT (SGPT) 15 U/L (8-55); AST (SGOT) 13 U/L (5-34); Albumin 3.6 g/dL (3.5-5.0); Alkaline Phosphatase 78 U/L (40-110); Anion Gap 11 mmol/L (10-20); BUN (Urea Nitrogen) 11 mg/dL (7.0-18.7); Bilirubin, Total 0.5 mg/dL (0.2-1.2); Calc. Creatinine Clearance 0 mL/min (70-130); Calcium 9.3 mg/dL (7.8-10.44); Carbon Dioxide 23 mmol/L (22-29); Chloride 105 mmol/L (98-107); Estimated GFR-MDRD Greater than 90; Globulin 3.1 g/dL (2.4-3.5); Glucose 299 mg/dL (70-105); Lipase 28 U/L (8-78); Protein, Total 6.7 g/dL (6.0-8.3); Sodium 135 mmol/L (136-145)
--- NOTE | 2019-09-11 20:13 | CT ---
CT OF THE ABDOMEN AND PELVIS WITH IV CONTRAST INDICATION: Lower abdominal pain COMPARISON: CT the abdomen and pelvis dated April 21, [address] of the chest dated April 20, 2019 . FINDINGS: ABDOMEN: Lung bases: Clear Liver: There is a 8 mm hypodensity within segment 7 of the right hepatic lobe on image 25 series 2. T here is a 10 mm hypodensity within the right hepatic dome image 15 series 2. The smaller 8 mm lesion demonstrates areas of peripheral nodular discontinuous enhancement which was also present on t he comparison examinations. These are suspicious for small hemangioma Gallbladder: Contracted Pancreas: Normal. Adrenal glands: Normal. Spleen: Normal. Kidneys and ureters: Normal. No hydronephrosis. Vasculature: Normal. Lymph nodes:No lymphadenopathy. Free fluid in abdomen:No free fluid is evident. PELVIS: Small and large bowel: Normal Appendix:Normal Bladder: Normal. Rectal and perirectal soft tissues:Normal. Reproductive structures: Normal. Free fluid in pelvis: No free fluid is evident. Lymphadenopathy pelvis: No lymphadenopathy is evident. Osseous structures: No acute osseous abnormality. No destructive osteolytic or osteoblastic lesion i s identified. Soft tissues:Normal. IMPRESSION: 1. No acute abnormality. 2. Stable tiny hypodensities within the right hepatic lobe suspicious for small hemangioma. Nonemerge nt MR of the abdomen utilizing hemangioma protocol is recommended for additional characterization.
[2019-09-11] MEDS ORDERED: Ketorolac Tromethamine 30 MG/ML VIAL ONE (20:16)
== END 2019-09-11 20:38 | disposition home or self-care (01) ==
LOC: ERS 18:51
DX: R10.32 Left lower quadrant pain (principal); E11.9 Type 2 diabetes mellitus without complications; E78.00 Pure hypercholesterolemia, unspecified; Z79.4 Long term (current) use of insulin
CPT/HCPCS: 74177; 80053; 81003; 83690; 84703; 85025; 87086; 93005; 96361; 96374; 96375; J1885; J2405; J3010; Q9967

== ENCOUNTER 2019-10-02 03:03 | Emergency (ER) | payer OTHER | END 2019-10-02 03:24 | disposition left against medical advice (07) | LOC: ERS 03:03 | DX: Z53.21 Procedure and treatment not carried out due to patient leaving prior to being seen by health care provider (principal) ==

== ENCOUNTER 2019-11-24 15:24 | Outpatient (CLI) | payer OTHER ==
--- NOTE | 2019-11-24 16:07 | ULT ---
RIGHT UPPER QUADRANT ULTRASOUND: 11/24/19 HISTORY: Right upper quadrant pain. FINDINGS: The liver demonstrates increased echogenicity consistent with fatty infiltration without focal mass o r intrahepatic ductal dilatation. No gallstones, gallbladder wall thickening or pericholecystic fluid is seen. The common duct measures 3 mm in diameter. The tail of the pancreas is not visualized. The visualized portions of the pancreas and the right kidney appear normal. No free fluid is seen. IMPRESSION: 1. Fatty liver. 2. No evidence of cholelithiasis. POS: [facility]
== END 2019-11-24 15:25 | disposition home or self-care (01) ==
LOC: SCSULT 15:24
PROVIDERS: ATTEND Student in an Organized Health Care Education/Training Program
DX: R10.11 Right upper quadrant pain (principal); K76.0 Fatty (change of) liver, not elsewhere classified
CPT/HCPCS: 76705; 80053

== ENCOUNTER 2019-12-30 10:15 | Outpatient (CLI) | payer OTHER ==
--- NOTE | 2019-12-30 14:44 | MRI ---
MR OF THE LEFT SHOULDER WITHOUT CONTRAST: 12/30/19 INDICATION: Left muscular strain and concern for tendon tear of the left rotator cuff. COMPARISON: None. TECHNIQUE: Multiplanar and multisequence MR images were obtained of the left shoulder without IV contrast. FINDINGS: There is moderate tendinosis of the supraspinatus and infraspinatus without evidence of a definite fu ll thickness tear. There is mild to moderate tendinosis of the intra-articular biceps tendon without evidence of obstruction. The biceps tendon is located. No overt paralabral cyst is evident. There is a small amount of fluid in the subacromial subdeltoid space. There is AC joint osteoarthrosis. No os acromiale is evident. IMPRESSION: 1. Tendinosis of the supraspinatus, infraspinatus and long head of the biceps tendon. No full th ickness tear is grossly evident. 2. Mild fluid distention of the subacromial subdeltoid bursa may reflect mild bursitis. 3. Mild AC joint osteoarthrosis. POS: [facility]
== END 2019-12-30 10:16 | disposition home or self-care (01) ==
LOC: BICMRI 10:15
PROVIDERS: ATTEND Family Medicine
DX: S46.012D Strain of muscle(s) and tendon(s) of the rotator cuff of left shoulder, subsequent encounter (principal); M19.012 Primary osteoarthritis, left shoulder; M75.92 Shoulder lesion, unspecified, left shoulder; M62.89 Other specified disorders of muscle

== ENCOUNTER 2020-04-19 15:49 | Inpatient (IN) | payer OTHER ==
[2020-04-19 16:41] VITALS: BP 113/63; TEMP 98; BMI 51.7
[2020-04-19 17:15] LABS: #Eosinphils 0.3 thou/uL (0.0-0.7); #Lymphocytes 2.7 thou/uL (1.20-3.40); #Monocytes 0.4 thou/uL (0.11-0.59); %Basophils 0.4 % (0.0-1.0); %Eosinophils 3.7 % (0.0-10.0); %Lymphocytes 31.9 % (21.0-51.0); Hemoglobin 11.8 g/dL (12.0-16.0); Mean Corpuscular HGB CONC 33.8 g/dL (32.0-36.0); Mean Corpuscular Hemoglobin 29.7 pg (27.0-31.0); Mean Platelet Volume 10.6 fL (7.4-10.4); Platelet Count 162 thou/uL (130-400); RBC Distribution Width 13.4 % (11.5-14.5); Red Blood Cell (RBC) Count 3.98 mill/uL (4.20-5.40); White Blood Cell (WBC) Count 8.5 thou/uL (4.8-10.8)
[2020-04-19 17:37] LABS: ALT (SGPT) 12 U/L (8-55); AST (SGOT) 12 U/L (5-34); Albumin 2.9 g/dL (3.5-5.0); Alkaline Phosphatase 113 U/L (40-110); Anion Gap 11 mmol/L (10-20); BUN (Urea Nitrogen) 5 mg/dL (7.0-18.7); Bilirubin, Total 0.5 mg/dL (0.2-1.2); Calc. Creatinine Clearance 322 mL/min (70-130); Calcium 8.9 mg/dL (7.8-10.44); Carbon Dioxide 23 mmol/L (22-29); Chloride 107 mmol/L (98-107); Estimated GFR-MDRD Greater than 90; Globulin 3.2 g/dL (2.4-3.5); Glucose 81 mg/dL (70-105); Protein, Total 6.1 g/dL (6.0-8.3); Sodium 137 mmol/L (136-145)
[2020-04-19 17:53] LABS: Creatinine, Urine 75.09 mg/dL (47-110)
[2020-04-19] MEDS ORDERED: Betamet Acet/Betamet Na Ph 30 MG/5 ML VIAL ONE (18:04)
[2020-04-19] MEDS ORDERED: Promethazine HCl 25 MG/ML VIAL IM PRN (18:48)
[2020-04-19] MEDS ORDERED: Docusate 100 MG CAP PO PRN (18:48)
[2020-04-19] MEDS ORDERED: Zolpidem Tartrate 5 MG TAB PO PRN (18:48)
[2020-04-19] MEDS ORDERED: Ondansetron PF 4 MG/2 ML Vial IVP PRN (18:48)
[2020-04-19] MEDS ORDERED: hydrALAZINE 20 MG/ML VIAL SLOW IVP PRN (18:48)
[2020-04-19] MEDS ORDERED: Betamet Acet/Betamet Na Ph 30 MG/5 ML VIAL IM SCH (19:00)
[2020-04-19 19:59] LABS: Hemoglobin 11.9 g/dL (12.0-16.0); Mean Corpuscular HGB CONC 33.1 g/dL (32.0-36.0); Mean Corpuscular Hemoglobin 29.1 pg (27.0-31.0); Mean Platelet Volume 10.5 fL (7.4-10.4); Platelet Count 167 thou/uL (130-400); RBC Distribution Width 13.4 % (11.5-14.5); Red Blood Cell (RBC) Count 4.07 mill/uL (4.20-5.40); White Blood Cell (WBC) Count 9.2 thou/uL (4.8-10.8)
[2020-04-19] MEDS: Acetaminophen 500 MG TAB PO PRN (20:13)
[2020-04-19 20:47] LABS: Syphilis Antibody Nonreactive (Nonreactive); Syphilis Antibody Index 0.07 S/CO (<1.00 Non-Reactive)
[2020-04-19] MEDS ORDERED: NPH, Human Insulin Isophane 300 UNIT/3 ML VIAL SC SCH (21:00)
--- NOTE | 2020-04-19 22:18 | PDOC.LDHP ---
Labor and Delivery H&P Chief complaint: decreased movement (Pt has not felt movement in 1 day, bpp was 4/8 today in clinic. pt has uncontrolled iddm. bp was elevated in clinic today. pt not feeling well.) Current gestational age (weeks): 35 Due date: 05/23/20 Dating criteria: last menstrual period Grav: 2 Para: 1 Current complications: pregestational diabetes (obesity, noncompliance ) Abnormal US findings: Yes (bpp 4/8) Past Medical History: iddm, depression Current medications: pre- vitamins, other (insulin, baby asa, zoloft.) Previous surgical history: low tranverse CS (x2) Allergies/Adverse Reactions: Allergies Allergy/AdvReac Type Severity Reaction Status Date / Time No Known Allergies Allergy Verified 04/19/20 16:28 Social history: none - Physical Exam Vital signs reviewed and normal: yes General: NAD Heart: RRR Lungs: CTAB Abdomen: gravid Extremeties: no edema FHT: category 1 [place] contractions every: none - OB Labs Blood type: A RH: positive Antibody Screen: negative HIV: negative RPR: negative HEPSAg: negative GBS: unknown Urine drug screen: negative Rubella: immune - Assessment Uncontrolled insulin dependant diabetic with decreased movement and BPP of 4/8. NST ok now, will do prolonged monitoring and IV hydration. Repeat BPP in am. PIH labs ordered and normal. Will start BMZ for FLM. Cont insulin. FHT ok for now so can eat tonight, for repeat CS. Admit for inpt monitoring. Concern for 3T IUFD due to uncontrolled insulin dependant pregestational diabetes and abnormal BPP.
[2020-04-19 23:32] LABS: HBSAg Index 0.21 S/CO (0-0.99); Hep B Surf Ag Non-Reactive S/CO (NonReactive)
[2020-04-20] MEDS ORDERED: Calcium Carbonate 500 MG ChewTAB PO SCH ×2 (02:30→11:15)
[2020-04-20] MEDS ORDERED: Insulin Regular 300 UNITS/3 ML VIAL SC SCH ×2 (08:00→17:00)
--- NOTE | 2020-04-20 08:24 | PDOC.LDPN ---
Labor & Delivery Progress Note - Subjective Subjective: comfortable - Objective Vital signs reviewed and normal: yes General: NAD Uterine fundus: non tender -: fasting 130, 2hr dinner 160, increase insulin by 10% cont monitoring overnight Cat 1, baseline 115, no decels Repeat BPP this morning BMZ x 1 last night due to mild range BP x 1, labs negative, no sx PIH. Will hold second dose since reassuring testing and normal BPs due to deleterious effect on blood sugars and risk to fetus. If BPP good will plan on DC today
[2020-04-20] MEDS ORDERED: Dextrose 50% Abboject 50 ML SYRINGE SLOW IVP PRN (08:25)
[2020-04-20] MEDS ORDERED: HumaLOG 300 UNITS/3 ML VIAL SC PRN (08:25)
[2020-04-20] MEDS ORDERED: Dextrose 5% in Water 1,000 ML IV PRN (08:25)
[2020-04-20] MEDS: Acetaminophen 500 MG TAB PO PRN (08:51)
[2020-04-20] MEDS ORDERED: Prenatal Vitamin 1 TAB PO SCH (09:00)
[2020-04-20] MEDS ORDERED: NPH, Human Insulin Isophane 300 UNIT/3 ML VIAL SC SCH (09:00)
--- NOTE | 2020-04-20 09:32 | ULT ---
ULTRASOUND BIOPHYSICAL PROFILE: HISTORY: Obesity, 35 weeks , prior BPP 12/06. FINDINGS: Single viable intrauterine fetus in vertex presentation. The placenta is posterior. heart rat e 130 b.p.m. OLIVE=14.4 cm. biophysical profile score=8/8, normal. IMPRESSION: Normal biophysical profile score 8/8. POS: OFF
[2020-04-20] MEDS: Lactated Ringer's 1,000 ML IV SCH ×2 (13:13→13:14)
[2020-04-20 13:54] LABS: SARS-CoV-2 MS2 Positive; SARS-CoV-2 N Gene Negative; SARS-CoV-2 S Gene Negative; SARS-CoV-2 by NAA Not Detected (NotDetected); SARS-CoV-2 orf1ab Negative
[2020-04-21] MEDS ORDERED: Ferrous Sulfate 325 MG TAB PO SCH (08:00)
== END 2020-04-20 15:00 | disposition home or self-care (01) | DRG 833 ==
LOC: L&D/OP 15:49 → L&D 16:56
PROVIDERS: ADMIT Student in an Organized Health Care Education/Training Program; ATTEND Student in an Organized Health Care Education/Training Program
DX: O24.414 Gestational diabetes mellitus in pregnancy, insulin controlled (principal); Z3A.35 35 weeks gestation of pregnancy; Z91.19 Patient's noncompliance with other medical treatment and regimen; O99.213 Obesity complicating pregnancy, third trimester; E66.9 Obesity, unspecified; O99.343 Other mental disorders complicating pregnancy, third trimester; F32.9 Major depressive disorder, single episode, unspecified; Z11.59 Encounter for screening for other viral diseases
CPT/HCPCS: 36415; 36416; 76819; 80053; 82570; 84156; 85025; 86780; 86850; 86900; 86901; 87340; 87635; 99285; J0702; J1815; U0003

== ENCOUNTER 2020-05-20 11:25 | Inpatient (IN) | payer OTHER ==
[2020-05-20] MEDS ORDERED: Ketorolac Tromethamine 30 MG/ML VIAL ONE (13:34)
[2020-05-20 13:47] LABS: Hemoglobin 12.9 g/dL (12.0-16.0); Mean Corpuscular HGB CONC 32.8 g/dL (32.0-36.0); Mean Corpuscular Hemoglobin 29.5 pg (27.0-31.0); Mean Corpuscular Volume 90.1 fL (78.0-98.0); Mean Platelet Volume 9.9 fL (7.4-10.4); Platelet Count 239 thou/uL (130-400); RBC Distribution Width 13.4 % (11.5-14.5); Red Blood Cell (RBC) Count 4.37 mill/uL (4.20-5.40); White Blood Cell (WBC) Count 6.4 thou/uL (4.8-10.8)
[2020-05-20 13:52] LABS: Bilirubin Negative (Negative); Blood, Urine Negative (Negative); Clarity Clear (Clear); Glucose, Urine (Dipstick) Normal (Negative); Ketone, Urine Negative (Negative); Leukocyte Negative Leu/uL (Negative); Nitrite Negative (Negative); Protein, Urine (Dipstick) Negative (Neg-Trace); Specific Gravity, Urine 1.012 (1.002-1.036); Urobilinogen Normal mg/dL (Less than 2)
[2020-05-20 13:59] LABS: ALT (SGPT) 17 U/L (8-55); AST (SGOT) 13 U/L (5-34); Albumin 3.5 g/dL (3.5-5.0); Alkaline Phosphatase 120 U/L (40-110); Anion Gap 14 mmol/L (10-20); BUN (Urea Nitrogen) 8 mg/dL (7.0-18.7); Bilirubin, Total 0.7 mg/dL (0.2-1.2); Calc. Creatinine Clearance 0 mL/min (70-130); Calcium 8.7 mg/dL (7.8-10.44); Carbon Dioxide 24 mmol/L (22-29); Chloride 107 mmol/L (98-107); Estimated GFR-MDRD Greater than 90; Globulin 3.3 g/dL (2.4-3.5); Glucose 115 mg/dL (70-105); Potassium 3.9 mmol/L (3.5-5.1); Protein, Total 6.8 g/dL (6.0-8.3); Sodium 141 mmol/L (136-145)
[2020-05-20 14:01] LABS: Band 1 % (5-11); Eosinophils 9 % (0-10); Lymphocytes 46 % (21-51); MDiff Complete? YES; Monocytes 3 % (0-10); Neutrophil 39 % (42-75); Platelet Morphology Comment Appears Adequate; RBC Morphology Normal; Reactive Lymphocytes 2 % (0-10)
--- NOTE | 2020-05-20 14:36 | ULT ---
LIMITED TRANSABDOMINAL PELVIC ULTRASOUND: History: Vaginal bleeding, two weeks post-. FINDINGS: The uterus measures 16.6 x 7.9 x 9.1 cm in size. The endometrium 1.0 cm. Neither right or left ovarie s are not visualized. No abnormal fat or fluid collection. IMPRESSION: Enlarged uterus consistent with recent post-. No significant abnormal products of conception de monstrated within the endometrium. Endometrial thickness, 1.6 cm. Nonvisualized ovaries. No abnormal pelvic fluid collections. POS: OFF
[2020-05-20] MEDS ORDERED: Magnesium 2 GM/50 ML BAG (IN WATER) ONE ×4 (14:48→17:51)
[2020-05-20] MEDS ORDERED: Labetalol HCl 100 MG/20 ML VIAL ONE (14:49)
[2020-05-20] MEDS ORDERED: niCARdipine 20MG In NaCl 20 MG/200 ML BAG ONE (16:40)
[2020-05-20] MEDS ORDERED: Calcium Gluconate 4.6 MEQ in Sodium Chloride 0.9% 100 ML IVPB PRN (17:18)
[2020-05-20] MEDS: Magnesium Sulfate 20 gm/500 ml 20 GM/500 ML BAG IVPB SCH (18:44)
[2020-05-20] MEDS ORDERED: niCARdipine 25 MG in Sodium Chloride 0.9% 250 ML 240 ML IVPB PRN (18:52)
[2020-05-20] MEDS ORDERED: HumaLOG 300 UNITS/3 ML VIAL SC PRN ×2 (18:54)
[2020-05-20] MEDS ORDERED: Ondansetron PF 4 MG/2 ML Vial IVP PRN (18:54)
[2020-05-20] MEDS ORDERED: Ondansetron ODT 4 MG TAB PO PRN (18:54)
[2020-05-20] MEDS ORDERED: Dextrose 5% in Water 1,000 ML IV PRN (18:54)
[2020-05-20] MEDS ORDERED: Dextrose 50% Abboject 50 ML SYRINGE SLOW IVP PRN (18:54)
[2020-05-20] MEDS ORDERED: Acetaminophen 500 MG TAB PO PRN (18:54)
[2020-05-20] MEDS ORDERED: Labetalol HCl 100 MG/20 ML VIAL SLOW IVP PRN (18:54)
[2020-05-20] MEDS ORDERED: cloNIDine 0.1 MG TAB PO PRN (18:54)
[2020-05-20] MEDS ORDERED: niCARdipine 50 MG in Sodium Chloride 0.9% 250 ML 230 ML IVPB SCH (19:15)
[2020-05-20] MEDS: Sodium Chloride 0.9% 1,000 ML IV SCH (19:23)
[2020-05-20 19:39] VITALS: BMI 46.1
--- NOTE | 2020-05-20 19:40 | HP ---
PRIMARY CARE PROVIDER: Shiloh Daniels MD CHIEF COMPLAINT: Abdominal pain. HISTORY OF PRESENT ILLNESS: This is a 40-year-old female, who presented to [facility] Emergency Department complaining of lower abdominal pain in the context of a recent repeat section performed approximately 2 weeks prior to this evaluation. The patient states she had been doing well at home and denied any fever, chills, or dysuria. The patient apparently passed a large vaginal clot with some back pain. During her evaluation in the emergency room, the patient was noted with elevated blood pressures ranging in the 210s over 115s. The patient received IV labetalol x2 in addition to magnesium sulfate up to 8 g. The patient denies a known history of hypertension, but does states she was diagnosed with diabetes in 2007 and has been managed on insulin and glipizide. The patient denied any other change to her chronic medication regimen, exposure history, travel, or increased stressors. The patient denied any chest pain, but does admit to frontal headache, which has increased in the emergency room. The patient states her last meal was approximately 16-20 hours prior to this evaluation. Initially, the patient was evaluated by the OB Hospitalist Service due to the recent section, at which point, she received the magnesium infusions. Due to persistent hypertension and inability to control the blood pressures with current regimen, the patient was referred to the Hospitalist Service for admission to this critical care unit for Cardene infusion. PAST MEDICAL HISTORY: 1. 3, para 3, status post section 05/2020. 2. Diabetes mellitus type 2, insulin requiring, diagnosed in 2007. 3. Depression. 4. Morbid obesity. PAST SURGICAL HISTORY: 1. Status post section x3. 2. Status post tonsillectomy. CURRENT MEDICATIONS: 1. Iron tablets one tablet p.o. t.i.d. 2. Glipizide 20 mg p.o. b.i.d. 3. Nexium 20 mg p.o. daily. 4. vitamin 1 tablet p.o. daily. 5. Sertraline 50 mg p.o. daily. 6. NPH insulin 70/30 of 15 units subcutaneously daily. 7. Humulin R 6 units subcutaneously q.a.m. and 10 units subcutaneously at bedtime. ALLERGIES: TO METFORMIN. FAMILY HISTORY: Positive for hypertension and diabetes mellitus. SOCIAL HISTORY: Resides in the [place], [place] area. Occasional alcohol use. No tobacco or illicit drug use. Functional of all activities of daily living. REVIEW OF SYSTEMS: CONSTITUTIONAL: Negative for weight loss or gain, ability to conduct usual activities. SKIN: Negative for rash, itching. EYES: Negative for double vision, pain. ENT/MOUTH: Negative for nose bleeding, neck stiffness, pain, tenderness. CARDIOVASCULAR: Negative for palpitations, dyspnea on exertion, orthopnea. RESPIRATORY: Negative for shortness of breath, wheezing, cough, hemoptysis, fever or night sweats. GASTROINTESTINAL: Negative for poor appetite, abdominal pain, heartburn, nausea, vomiting, constipation, or diarrhea. GENITOURINARY: Negative for urgency, frequency, dysuria, nocturia. MUSCULOSKELETAL: Negative for pain, swelling. NEUROLOGIC/PSYCHIATRIC: Negative for anxiety, depression. ALLERGY/IMMUNOLOGIC: Negative for skin rash, bleeding tendency. Otherwise negative except as stated per HPI. PHYSICAL EXAMINATION: VITAL SIGNS: On admission, blood pressure 184/106, pulse 66, respiratory rate 16, temperature 98.5 degrees Fahrenheit, and O2 saturation 99% on room air. GENERAL APPEARANCE: This is a 40-year-old female, alert and oriented x3, pleasant, conversant, in no acute distress. HEENT: Pupils are equal, round, and reactive to light and accommodation. Extraocular muscles are intact. No scleral icterus. No conjunctival injection. Nares patent. OP is clear. Teeth in good repair. NECK: Supple. No cervical adenopathy. No thyromegaly. No carotid bruits. No JVD appreciated. Cervical spine with full active and passive range of motion. No meningeal signs noted. CHEST: Lungs are clear to auscultation bilaterally. CARDIOVASCULAR: S1 and S2 without noted murmur, rub, or gallop. ABDOMEN: Obese with mild tenderness to palpation in the suprapubic region. Postoperative scar noted consistent with prior section. No wound dehiscence noted. EXTREMITIES: Warm and dry with fair turgor. No clubbing, cyanosis, or asymmetric edema appreciated. Pulses palpable distally at the dorsalis pedis, posterior tibial, and popliteal arteries bilaterally. Capillary refill less than 2 seconds. NEUROLOGIC: Cranial nerves 2 through 12 are grossly intact. No focal or lateralizing signs appreciated. PERTINENT LABORATORY AND X-RAY FINDINGS: Sodium 141, potassium 3.9, chloride 107, CO2 of 24, BUN 8, creatinine 0.63, glucose 115, calcium 8.7, total bilirubin 0.7, AST 13, ALT of 17, alkaline phosphatase 120, albumin 3.5. CBC showed a white blood cell count of 6.4, hemoglobin 12.9, hematocrit 39.4, platelet count 239 with 39% neutrophils. Urine negative for protein, urine creatinine 69.33. Pelvic ultrasound dated 05/20/2020, showed enlarged uterus consistent with recent state. Endometrium 1.0 cm. Telemetry shows sinus mechanism. ASSESSMENT AND PLAN: 1. Hypertensive urgency with questionable preeclampsia. The patient will be admitted to the Critical Care Unit. We will initiate Cardene infusion to maintain systolic less than 150. Continue labetalol 20 mg IV q.4 hours p.r.n. systolic greater than 170, clonidine 0.1 mg p.o. q.4 hours p.r.n. systolic greater than or equal to 170. Continue serial blood pressure monitoring. Magnesium infusion at the direction of the OB Hospitalist Service. Check 2D transthoracic echocardiogram in the a.m. Check TSH level in the a.m. 2. Diabetes mellitus type 2, insulin requiring. Insulin sliding scale for reflexive coverage. Confirm home insulin regimen. ADA diet. Serial Accu-Cheks a.c. and at bedtime. 3. Depression. Continue home regimen of sertraline 50 mg p.o. daily. 4. Status post section. Continue routine care. OB hospitalist consulted for monitoring. Resume vitamin and iron. 5. Prophylaxis. SCDs while in bed. Pepcid 20 mg p.o. b.i.d. General seizure precautions. CODE STATUS: Full. Surrogate decision maker is the patient's spouse. Job ID: [id number] [facility]
[2020-05-20] MEDS: Acetaminophen/Codeine 30-300mg Tablet PO PRN (20:50)
[2020-05-20] MEDS: Famotidine 20 MG TAB PO SCH (20:51)
--- NOTE | 2020-05-20 21:27 | CON ---
DATE OF CONSULTATION: 05/20/2020 REASON FOR CONSULT: patient with severe range blood pressures. HISTORY OF PRESENT ILLNESS: The patient is a 40-year-old G3, P3 who is approximately 18 days , status post a repeat section for insulin-dependent diabetes mellitus and history of prior section who presented to the emergency department with chief complaint of abdominal pain that began earlier today. Workup in the emergency department including a transabdominal pelvic ultrasound and routine blood work was unremarkable with no retained products or fluid collections noted. However, on presentation to the emergency department, the patient's blood pressure was noted to be significantly elevated at 186/112. She also reported an associated headache. The OB hospitalist team was therefore consulted for further management of severe range blood pressure in the setting. The patient denied any chest pain, shortness of breath, right upper quadrant pain, vision changes, or edema but did endorse mild headache on exam as noted above. PAST MEDICAL HISTORY: Morbid obesity, insulin-dependent diabetes mellitus type 2, and depression. PAST SURGICAL HISTORY: Low transverse section x3. MEDICATIONS: 1. NPH and regular insulin. 2. Glipizide. 3. Sertraline. 4. vitamins. ALLERGIES: METFORMIN. FAMILY HISTORY: DMII. SOCIAL HISTORY: No tobacco, alcohol, or drugs. PERTINENT LABORATORY DATA: Urine protein less than 10, urine creatinine 69.33. Platelets 239. Creatinine 0.63 with an EGFR greater than 90. Blood glucose 115, alkaline phosphatase 120, and AST and ALT of 13 and 17 respectively. REVIEW OF SYSTEMS: A 12-point review of systems negative except for what was noted above in the HPI. PHYSICAL EXAMINATION: VITAL SIGNS: Blood pressure 199/107, heart rate 66, respirations 17, temperature 98.7 Fahrenheit, and oxygen 98% on room air. GENERAL: The patient in no apparent distress and well nourished. HEART: Regular rate. LUNGS: No respiratory distress. ABDOMEN: Obese. EXTREMITIES: No edema. NEUROLOGIC: No focal deficits. Cranial nerves grossly intact. A and O x4. PSYCHIATRIC: Mood and affect within normal limits. ASSESSMENT: The patient is a 40-year-old G3, P3 who is day #18 who subsequently developed severe range blood pressures concerning for possible preeclampsia. PLAN: 1. Severe range blood pressures concerning for preeclampsia: Laboratory workup including urine protein-creatinine ratio, platelets, LFTs, and creatinine are all within normal limits; however, given the patient's multiple severe range pressures that have been nonresponsive to labetalol x2 and a loading dose and continued drip of IV magnesium, we recommend that the patient be admitted to the CCU for blood pressure management by the hospitalist team. OB hospitalist to continue routine magnesium management. Will continue magnesium drip at 2 and monitor closely for signs of magnesium toxicity. Will also continue strict I's and O's and seizure precautions. 2. Insulin-dependent diabetes mellitus: To be managed by the admitting hospitalist team. 3. Depression: To be managed by admitting team. 4. Obesity. Aware, will encourage lifestyle changes. DISPOSITION: OB Hospitalist Attending, Dr. Thao, spoke with hospitalist, Dr. Americo Devlin, who agreed to admit the patient to the CCU for blood pressure management on a Cardene drip. OB hospitalists to continue routine magnesium management. Case discussed with attending physician, Dr. Rich Thao, who is in agreement with this assessment and plan. Job ID: [id number] [facility]
[2020-05-21] MEDS: Acetaminophen/Codeine 30-300mg Tablet PO PRN ×5 (00:52→22:40)
[2020-05-21 03:29] LABS: #Basophils 0.1 thou/uL (0.0-0.2); #Eosinphils 0.5 thou/uL (0.0-0.7); #Lymphocytes 3.2 thou/uL (1.20-3.40); #Monocytes 0.4 thou/uL (0.11-0.59); #Neutrophils 3.4 thou/uL (1.40-6.50); %Basophils 1.1 % (0.0-1.0); %Eosinophils 6.1 % (0.0-10.0); %Lymphocytes 42.5 % (21.0-51.0); %Monocytes 5.3 % (0.0-10.0); Hemoglobin 12.8 g/dL (12.0-16.0); Mean Corpuscular HGB CONC 32.6 g/dL (32.0-36.0); Mean Corpuscular Hemoglobin 29.1 pg (27.0-31.0); Mean Corpuscular Volume 89.1 fL (78.0-98.0); Mean Platelet Volume 10.3 fL (7.4-10.4); Platelet Count 226 thou/uL (130-400); RBC Distribution Width 13.3 % (11.5-14.5); White Blood Cell (WBC) Count 7.5 thou/uL (4.8-10.8)
[2020-05-21 03:49] LABS: ALT (SGPT) 16 U/L (8-55); AST (SGOT) 14 U/L (5-34); Albumin 3.4 g/dL (3.5-5.0); Alkaline Phosphatase 119 U/L (40-110); Anion Gap 14 mmol/L (10-20); BUN (Urea Nitrogen) 8 mg/dL (7.0-18.7); Bilirubin, Total 0.6 mg/dL (0.2-1.2); Calc. Creatinine Clearance 256 mL/min (70-130); Calcium 7.7 mg/dL (7.8-10.44); Carbon Dioxide 22 mmol/L (22-29); Chloride 105 mmol/L (98-107); Estimated GFR-MDRD Greater than 90; Globulin 3.2 g/dL (2.4-3.5); Glucose 157 mg/dL (70-105); Potassium 3.7 mmol/L (3.5-5.1); Protein, Total 6.6 g/dL (6.0-8.3); Sodium 137 mmol/L (136-145)
[2020-05-21] MEDS: Sodium Chloride 0.9% 1,000 ML IV SCH ×2 (05:02→11:18)
[2020-05-21] MEDS: Magnesium Sulfate 20 gm/500 ml 20 GM/500 ML BAG IVPB SCH (05:02)
--- NOTE | 2020-05-21 07:02 | PDOC.EVN ---
Event Note - Event Note Event Note: Cardipine drip restarted this AM for severe range pressures. Mg at 2 gms/hr. UO is excellent. Plan: BP control per [place], greatly appreciated. Cont. MgS04 x [address] Lawrence notified of this pts. admit.
[2020-05-21] MEDS: Famotidine 20 MG TAB PO SCH ×2 (09:15→21:08)
[2020-05-21] MEDS: Prenatal Vitamin 1 TAB PO SCH (09:15)
[2020-05-21] MEDS: NPH, Human Insulin Isophane 300 UNIT/3 ML VIAL SC SCH (09:15)
[2020-05-21] MEDS ORDERED: Metoprolol Tartrate 25 MG TAB PO SCH (11:30)
--- NOTE | 2020-05-21 12:09 | PDOC.HOSPP ---
- Subjective Encounter Date: 05/21/20 Encounter Time: 12:00 Subjective: f/u for HTN urgency and ? preeclampsia initiated on Cardene gtt for BP control with Magnesium infusion. Overall feels better but has residueal headache. BP trend improved. - Objective Vital Signs & Weight: Vital Signs (12 hours) Temp Pulse Ox 05/21/20 08:00 98.6 F 99 05/21/20 04:00 98.6 F Weight Weight 286 lb 2.56 oz Most Recent Monitor Data Heart Rate from ECG 92 NIBP 152/93 NIBP BP-Mean 112 Respiration from ECG 22 SpO2 96 I&O: 05/20/20 05/21/20 05/22/20 06:59 06:59 06:59 Intake Total 1510 1360 Output Total 1700 1300 Balance -190 60 Result Diagrams: 05/21/20 03:15 05/21/20 03:15 Additional Labs: Accuchecks 05/21/20 05/21/20 05/20/20 11:15 06:03 20:58 POC Glucose 191 H 145 H 169 H Radiology Reviewed by me: Yes (2D echo - pending) EKG Reviewed by me: Yes (Tele - SR) Hospitalist ROS - Medication Medications: Active Medications Generic Name Dose Route Start Last Admin Trade Name Freq PRN Reason Stop Dose Admin Acetaminophen 1,000 mg 05/20/20 18:54 05/20/20 19:20 Acetaminophen 500 Mg Tab PO 1,000 mg Q6H PRN Administration Mild Pain (1-3) Acetaminophen/Codeine Phosphate 1 tab 05/20/20 20:38 05/21/20 11:06 Acetaminophen/Codeine 30-300mg Tablet PO 1 tab Q4H PRN Administration Moderate Pain (4-6) Famotidine 20 mg 05/20/20 21:00 05/21/20 09:15 Famotidine 20 Mg Tab PO 20 mg BID JESSEE Administration Magnesium Sulfate 20 gm in 500 mls @ 50 mls/hr 05/20/20 17:30 05/21/20 05:02 Magnesium Sulfate 20 Gm/500 Ml IVPB 500 mls INF JESSEE Administration Sodium Chloride 1,000 mls @ 125 mls/hr 05/20/20 19:00 05/21/20 11:18 Normal Saline 0.9% IV Not Given .Q8H JESSEE Nicardipine HCl 50 mg/ Sodium 250 mls @ 0 mls/hr 05/20/20 19:15 05/21/20 06:34 Chloride IVPB 250 mls INF JESSEE Administration Protocol Titrate Insulin Human Lispro 0 units 05/20/20 18:54 05/21/20 11:26 Humalog 300 Units/3 Ml Vial SC 2 unit .MILD SLIDING SCALE PRN Administration Mild Correctional Scale Insulin Human NPH 15 unit 05/21/20 09:00 05/21/20 09:15 Nph, Human Insulin Isophane 300 Unit/3 Ml Vial SC 15 unit QAM JESSEE Administration Multivit/Folic Acid/Iron 1 tab 05/21/20 09:00 05/21/20 09:15 Vitamin 1 Tab PO 1 tab DAILY JESSEE Administration Sodium Chloride 10 ml 05/20/20 21:00 05/21/20 09:19 Flush - Normal Saline 10 Ml Syringe IVF 10 ml Q12HR JESSEE Administration - Exam General Appearance: NAD, awake alert Eye: PERRL, anicteric sclera ENT: normocephalic atraumatic, no oropharyngeal lesions Neck: supple, symmetric, no JVD, no thyromegaly, no lymphadenopathy Heart: RRR, no murmur, no gallops, no rubs, normal peripheral pulses Heart - other findings: S1, S2 Respiratory: CTAB, no wheezes, no rales, no ronchi, normal chest expansion Gastrointestinal: soft, non-tender, non-distended, normal bowel sounds Extremities: no cyanosis, no clubbing, no edema Skin: normal turgor, no lesions Neurological: cranial nerve grossly intact, no new deficit Musculoskeletal: normal tone, normal strength, no muscle wasting Psychiatric: normal affect, A&O x 3 Hosp A/P (1) Hypertensive urgency Code(s): I16.0 - HYPERTENSIVE URGENCY Status: Acute Plan: Improved trend, wean Cardene gtt after initiation of Metoprolol, titrate BP regimen based on clinical response (2) Headache Code(s): R51 - HEADACHE Status: Acute Plan: Likely vascular [place] due to HTN, T3, supportive mgmt (3) IDDM (insulin dependent diabetes mellitus) Code(s): CFL4083 - Status: Chronic Plan: Resume home insulin regimen, serial accuchecks (4) Depression Code(s): F32.9 - MAJOR DEPRESSIVE DISORDER, SINGLE EPISODE, UNSPECIFIED Status: Chronic Plan: Resume home Sertraline - Plan plan discussed w/ family, out of bed/ambulate, DVT proph w/SCDs Stable currently Wean Cardene gtt after initiating Metoprolol Titrate BP regimen to optimal response Continue Magnesium IV another 24h OOB/ambulate Saline lock IVF's Likely home in 24h
[2020-05-21] MEDS: Ibuprofen 800 MG TAB PO SCH ×2 (12:29→21:08)
[2020-05-21] MEDS ORDERED: Amlodipine 5 MG TAB PO SCH (13:45)
[2020-05-21] MEDS ORDERED: IRON CARB GL PO SCH (15:00)
[2020-05-21] MEDS ORDERED: B12 PO SCH (15:00)
[2020-05-21] MEDS ORDERED: DOCUSATE PO SCH (15:00)
[2020-05-21] MEDS ORDERED: [UNRECOGNIZED DRUG - OTHER] PO SCH (15:00)
[2020-05-21] MEDS: glipiZIDE 10 MG TAB PO SCH (16:05)
[2020-05-21 20:04] LABS: Amphetamine Not Detected (NotDetected); Barbiturates Screen Not Detected (NotDetected); Benzodiazepine Screen Not Detected (NotDetected); Cocaine Metabolite Screen Not Detected (NotDetected); Medtox Control Line Valid? VALID (VALID); Medtox Reader # READER 4; Methadone Not Detected (NotDetected); Methamphetamine Not Detected (NotDetected); Opiate Screen Detected (NotDetected); Oxycodone Screen Not Detected (NotDetected); Phencyclidine (PCP) Not Detected (NotDetected); THC/Cannabinoid Screen Not Detected (NotDetected); Tricyclic Screen Not Detected (NotDetected)
--- NOTE | 2020-05-21 21:30 | CON ---
DATE OF CONSULTATION: 05/21/2020 HISTORY OF PRESENT ILLNESS: Melissa Bruner is a 40-year-old female, who came to the emergency department with abdominal cramping. She says she passed a large clot out of her vagina, continued to have abdominal cramping after that. She recently had a (18 days ago). She is noted to be hypertensive and admitted to the ICU. She is on a Cardene drip. She has no history of hypertension, says she only had one elevated blood pressure while she was . She admits to snoring but has never been told she quits breathing during her sleep. PAST MEDICAL HISTORY: Remarkable for, 1. Multiple C-sections. 2. Obesity. 3. Diabetes. 4. History of depression. SOCIAL HISTORY: She is a nonsmoker, nondrinker, nondrug user. ALLERGIES: SHE REPORTS INTOLERANCE TO METFORMIN. MEDICATIONS: Prior to admission, she was on, 1. Insulin. 2. Glipizide. 3. Zoloft. 4. Vitamins. PHYSICAL EXAMINATION: VITAL SIGNS: Blood pressure was controlled when I saw her at 114/73, heart rates in the 60s, and respiratory rates in the teens. LUNGS: Clear. HEART: Regular rhythm. ABDOMEN: Soft and nontender. EXTREMITIES: Without clubbing, cyanosis, or edema. IMPRESSION: hypertension. Beta mabel has been started. Norvasc would facilitate weaning from Cardene. Once she is off her IV antihypertensive, she could probably be transferred out of the critical care unit. It would probably be advisable for her to have a sleep study sometime in the future. This is a 70 min consult with greater than 50% of the time spent on the unit with coordination of care. Job ID: [id number] [facility]
[2020-05-21] MEDS ORDERED: Zolpidem Tartrate 5 MG TAB PO PRN (22:18)
--- NOTE | 2020-05-21 22:21 | PDOC.EVN ---
Event Note - Event Note Event Note: Pt transfered to post from ICU today on metoprolol bid and norvasc daily. Pt has bp controlled at this time. Evening dose metoprolol given now. Desires ambien to help with sleep tonight.
[2020-05-21] MEDS: Metoprolol Tartrate 25 MG TAB PO SCH (22:27)
[2020-05-22] MEDS: Acetaminophen/Codeine 30-300mg Tablet PO PRN ×2 (05:29→10:00)
[2020-05-22] MEDS: Ibuprofen 800 MG TAB PO SCH (05:29)
[2020-05-22] MEDS: Famotidine 20 MG TAB PO SCH (07:49)
[2020-05-22] MEDS: Prenatal Vitamin 1 TAB PO SCH (07:49)
[2020-05-22] MEDS: Metoprolol Tartrate 25 MG TAB PO SCH (07:50)
[2020-05-22] MEDS: NPH, Human Insulin Isophane 300 UNIT/3 ML VIAL SC SCH (07:50)
[2020-05-22] MEDS ORDERED: glipiZIDE 10 MG TAB PO SCH (08:00)
[2020-05-22] MEDS: glipiZIDE 10 MG TAB PO SCH (08:04)
--- NOTE | 2020-05-22 08:22 | PRG ---
DATE OF SERVICE: 05/22/2020 SUBJECTIVE: The patient is hospital day 3, admitted for hypertensive urgency to the ICU, was transferred yesterday afternoon to , controlled on antihypertensive medications. Since coming to , the patient's blood pressures have primarily remained in the normal to mild range staying in the 120s to 130s most of the time. It was reported this morning, she did have a blood pressure of 160/75. The patient denies headache or other complaints. OBJECTIVE: VITAL SIGNS: This morning; blood pressure 160/75, heart rate of 69, respiratory rate of 17, temperature 98.9. GENERAL: She appears to be in no acute distress. She is alert, oriented, cooperative, pleasant to interact with. Blood sugars over the last 24 hours have been 145, 191, 145, 133, 142. ASSESSMENT/PLAN: The patient is a 40-year-old female, who was admitted to the hospital for hypertensive urgency in the . Now off magnesium and off the nicardipine drip, on metoprolol and Norvasc, getting good results with the single borderline blood pressure this morning, we have opted to have her take her oral medications early. We will continue to monitor her through the day to see how her blood pressures continue to hold up with this oral regimen. This [facility] team is assisting in her care also and has been co-managing with her. Blood sugars are a bit elevated. We will defer any titrating to the [facility] hospitalist team. I anticipate discharge home possibly this afternoon of this evening if blood pressures continue to stay under good control. Job ID: [id number]
[2020-05-22] MEDS ORDERED: Amlodipine 5 MG TAB PO SCH (09:00)
[2020-05-22 11:18] VITALS: BP 137/83; TEMP 98.6
--- NOTE | 2020-05-22 11:21 | PDOC.BPN ---
- Brief Progress Note Encounter Date: 05/22/20 Encounter Time: 11:20 Dr Devlin has given OK to DC patient home. I will order motrin ( and tylenol #3, only 6) for postop pain, now 3 weeks postop
--- NOTE | 2020-05-23 03:32 | DIS ---
DATE OF ADMISSION: 05/20/2020 DATE OF DISCHARGE: 05/22/2020 DISCHARGE DIAGNOSES: 1. Hypertensive urgency, resolved. 2. Headache secondarily to #1, resolved. 3. Diabetes mellitus type 2, insulin requiring. 4. Depression. 5. Status post section, stable. CONSULTATIONS: 1. Tonny Kline MD and Dr. Rich Thao with [employer] [facility]. 2. Riky Betts MD with Pulmonology/Critical Care Service. PERTINENT LABORATORY AND X-RAY FINDINGS: LFTs within normal limits. CBC within normal limits. Urinalysis negative. Urine drug screen dated 05/20/2020, positive for opiates. Pelvic ultrasound dated 05/20/2020, showed findings consistent with recent surgery. Endometrium 1.0 cm. 2D transthoracic echocardiogram dated 05/21/2020, showed ejection fraction of 60% to 65%. Mild tricuspid regurgitation. Diastolic dysfunction. Technically limited study. HOSPITAL COURSE: The patient was initially admitted to the Critical Care Unit after presenting with hypertensive urgency in the context of her recent , status post section and concern for preeclampsia. The patient was noted with systolics over 210, receiving IV labetalol as well as magnesium sulfate in the emergency room. The patient was initiated on a Cardene infusion and transferred to the Critical Care Unit. The patient continued to receive a Cardene infusion as well as magnesium for approximately 24 hours. The patient was initiated on metoprolol and Norvasc, titrating to optimal response. The patient transferred out of the Critical Care Unit to the medical floor, remaining clinically stable with overall improved blood pressure trend. The patient was followed by the [employer] [facility] during her hospital stay and remained clinically stable. No specific evidence to confirm preeclampsia; however, hypertension did improve with medical therapy. I have examined the patient at the time of discharge and discussed followup instructions. The patient verbalized understanding and agreement, ready for discharge on 05/22/2020. DISCHARGE MEDICATIONS: 1. Metoprolol 25 mg p.o. b.i.d. 2. Norvasc 10 mg 1 tablet p.o. daily. 3. vitamin 1 tablet p.o. daily. 4. Glipizide 20 mg p.o. b.i.d. 5. Nexium 20 mg p.o. daily. 6. Sertraline 50 mg p.o. daily. 7. NPH insulin 15 units subcutaneously q.a.m. 8. Humulin R 6 units subcutaneously q.a.m. and 10 units subcutaneously at bedtime. 9. Ibuprofen 800 mg p.o. t.i.d. p.r.n. FOLLOWUP: The patient may follow up with her primary care provider, Dr. Shiloh Daniels within 7 days of discharge. The patient may follow up with the [employer] [facility] and to call our office for appointment time and date. CONDITION ON DISCHARGE: Stable. ACTIVITY: Ad-chetna. DIET: ADA. CODE STATUS: Full. DISPOSITION: To home, 05/22/2020. TIME SPENT: Total time preparing and coordinating discharge, 32 minutes. Job ID: [id number]
== END 2020-05-22 12:17 | disposition home or self-care (01) | DRG 776 ==
LOC: ERS 11:25 → CCU 17:01 → 3SW 05-21 16:51
PROVIDERS: ADMIT Obstetrics & Gynecology; ATTEND Obstetrics & Gynecology
DX: O16.5 Unspecified maternal hypertension, complicating the puerperium (principal); I16.0 Hypertensive urgency; O99.215 Obesity complicating the puerperium; E66.01 Morbid (severe) obesity due to excess calories; O24.13 Pre-existing type 2 diabetes mellitus, in the puerperium; E11.9 Type 2 diabetes mellitus without complications; F32.9 Major depressive disorder, single episode, unspecified; O99.345 Other mental disorders complicating the puerperium; Z90.49 Acquired absence of other specified parts of digestive tract; R51 Headache
CPT/HCPCS: 36415; 36416; 51701; 76857; 80053; 80306; 81003; 82248; 82570; 84156; 85025; 93306; 96365; 96366; 96375; 96376; J1815; J1885; J3475; J7050

== ENCOUNTER 2021-07-01 16:47 | Emergency (ER) | payer OTHER ==
[2021-07-01 18:33] LABS: #Eosinphils 0.1 thou/uL (0.0-0.7); #Lymphocytes 2.2 thou/uL (1.20-3.40); #Monocytes 0.5 thou/uL (0.11-0.59); %Basophils 0.4 % (0.0-1.0); %Eosinophils 1.8 % (0.0-10.0); %Neutrophils 63.8 % (42.0-75.0); Hemoglobin 11.4 g/dL (12.0-16.0); Mean Corpuscular HGB CONC 32.3 g/dL (32.0-36.0); Mean Corpuscular Hemoglobin 25.2 pg (27.0-31.0); Mean Corpuscular Volume 78.1 fL (78.0-98.0); Mean Platelet Volume 10.7 fL (7.4-10.4); Platelet Count 198 thou/uL (130-400); RBC Distribution Width 14.8 % (11.5-14.5); Red Blood Cell (RBC) Count 4.52 mill/uL (4.20-5.40); White Blood Cell (WBC) Count 7.9 thou/uL (4.8-10.8)
[2021-07-01 19:09] LABS: ALT (SGPT) 20 U/L (8-55); AST (SGOT) 15 U/L (5-34); Albumin 3.5 g/dL (3.5-5.0); Alkaline Phosphatase 93 U/L (40-110); Anion Gap 13 mmol/L (10-20); BUN (Urea Nitrogen) 6 mg/dL (7.0-18.7); Calc. Creatinine Clearance 0 mL/min (70-130); Calcium 9.1 mg/dL (7.8-10.44); Carbon Dioxide 25 mmol/L (22-29); Chloride 102 mmol/L (98-107); Globulin 3.1 g/dL (2.4-3.5); Glucose 222 mg/dL (70-105); Potassium 4.2 mmol/L (3.5-5.1); Protein, Total 6.6 g/dL (6.0-8.3); Sodium 136 mmol/L (136-145)
[2021-07-01] MEDS ORDERED: Ondansetron PF 4 MG/2 ML Vial ONE (20:30)
[2021-07-01] MEDS ORDERED: Morphine 4 MG/ML VIAL ONE (20:30)
[2021-07-01 20:44] LABS: BHCG - Serum Negative (NEGATIVE); Pregs Control Background? CLEAR/WHITE (CLR/WHITE); Pregs Control Bar Appear? YES (CONTROL BAR)
[2021-07-01 21:27] LABS: Bacteria/HPF 4+ HPF (None Seen); Bilirubin Negative (Negative); Blood, Urine Trace (Negative); Clarity Turbid (Clear); Glucose, Urine (Dipstick) Greater than 1000 mg/dL (Negative); Ketone, Urine Negative (Negative); Leukocyte 500 Leu/uL (Negative); Nitrite 2+ (Negative); Protein, Urine (Dipstick) 30 mg/dL (Neg-Trace); RBC/HPF 0-3 HPF (0-3); Specific Gravity, Urine 1.022 (1.002-1.036); Squamous Epithelial 0-3 HPF (0-3); Urobilinogen Normal mg/dL (Less than 2); WBC/HPF Greater than 50 HPF (0-3)
== END 2021-07-01 23:25 | disposition home or self-care (01) ==
LOC: ERS 16:47
DX: R07.89 Other chest pain (principal); N39.0 Urinary tract infection, site not specified; E11.9 Type 2 diabetes mellitus without complications; E78.00 Pure hypercholesterolemia, unspecified
CPT/HCPCS: 36415; 71045; 71275; 80053; 81003; 81015; 84484; 84703; 85025; 87077; 87086; 93005; 96374; 96375; J2270; J2405; Q9967

== ENCOUNTER 2021-07-17 07:35 | Outpatient (CLI) | payer OTHER | END 2021-07-17 07:36 | disposition home or self-care (01) | LOC: BICMRI 07:35 | PROVIDERS: ATTEND Orthopaedic Surgery | DX: M25.512 Pain in left shoulder (principal); Z98.890 Other specified postprocedural states; M77.8 Other enthesopathies, not elsewhere classified ==

== ENCOUNTER 2021-09-28 23:52 | Emergency (ER) | payer OTHER ==
[2021-09-29 00:34] LABS: Hemoglobin 14.4 g/dL (12.0-16.0); Mean Corpuscular HGB CONC 32.1 g/dL (32.0-36.0); Mean Corpuscular Hemoglobin 26.6 pg (27.0-31.0); Mean Corpuscular Volume 82.8 fL (78.0-98.0); Mean Platelet Volume 11.2 fL (7.4-10.4); Platelet Count 201 thou/uL (130-400); RBC Distribution Width 20.4 % (11.5-14.5); Red Blood Cell (RBC) Count 5.42 mill/uL (4.20-5.40); White Blood Cell (WBC) Count 9.2 thou/uL (4.8-10.8)
[2021-09-29 00:48] LABS: Eosinophils 7 % (0-10); Lymphocytes 51 % (21-51); MDiff Complete? YES; Monocytes 4 % (0-10); Neutrophil 35 % (42-75); Reactive Lymphocytes 3 % (0-10)
[2021-09-29 00:50] LABS: Acetaminophen Less than 6.0 mcg/mL (10.0-30.0); Alcohol Less than 10 mg/dL (Less than 10); Salicylate Less than 8.0 mg/dL (15.0-30.0)
[2021-09-29 00:51] LABS: BHCG - Serum Negative (NEGATIVE); Pregs Control Background? CLEAR/WHITE (CLR/WHITE); Pregs Control Bar Appear? YES (CONTROL BAR)
[2021-09-29 00:51] LABS: ALT (SGPT) 21 U/L (8-55); AST (SGOT) 27 U/L (5-34); Albumin 3.7 g/dL (3.5-5.0); Alkaline Phosphatase 89 U/L (40-110); Anion Gap 12 mmol/L (10-20); BUN (Urea Nitrogen) 9 mg/dL (7.0-18.7); Bilirubin, Total 0.5 mg/dL (0.2-1.2); Calc. Creatinine Clearance 0 mL/min (70-130); Calcium 9.6 mg/dL (7.8-10.44); Carbon Dioxide 24 mmol/L (22-29); Chloride 103 mmol/L (98-107); Globulin 4.1 g/dL (2.4-3.5); Glucose 212 mg/dL (70-105); Potassium 5.2 mmol/L (3.5-5.1); Protein, Total 7.8 g/dL (6.0-8.3); Sodium 134 mmol/L (136-145)
[2021-09-29 02:08] LABS: Amphetamine Not Detected (NotDetected); Barbiturates Screen Not Detected (NotDetected); Benzodiazepine Screen Not Detected (NotDetected); Cocaine Metabolite Screen Not Detected (NotDetected); Methadone Not Detected (NotDetected); Methamphetamine Not Detected (NotDetected); Opiate Screen Detected (NotDetected); Oxycodone Screen Not Detected (NotDetected); Phencyclidine (PCP) Not Detected (NotDetected); THC/Cannabinoid Screen Not Detected (NotDetected); Tricyclic Screen Not Detected (NotDetected)
[2021-09-29 03:54] LABS: Acetaminophen Less than 6.0 mcg/mL (10.0-30.0)
[2021-09-29] MEDS ORDERED: Acetaminophen 500 MG TAB ONE (05:53)
[2021-09-29] MEDS ORDERED: Lantus 1000 UNITS/10 ML VIAL SC SCH (07:30)
[2021-09-29] MEDS ORDERED: Ferrous Sulfate 325 MG TAB PO SCH (07:45)
[2021-09-29] MEDS ORDERED: Metoprolol Tartrate 25 MG TAB ONE (12:25)
[2021-09-29] MEDS ORDERED: Ibuprofen 200 MG TAB ONE (12:25)
[2021-09-29 12:42] LABS: SARS-CoV-2 NAA Rapid Test Not Detected (NotDetected)
[2021-09-29] MEDS ORDERED: Acetaminophen 325 MG TAB ONE (20:49)
[2021-09-30] MEDS ORDERED: Ferrous Sulfate 325 MG TAB PO SCH (08:00)
[2021-09-30] MEDS ORDERED: Lantus 1000 UNITS/10 ML VIAL SC SCH (09:00)
[2021-09-30] MEDS ORDERED: Empagliflozin 10 MG TAB PO SCH (09:00)
== END 2021-09-30 10:36 ==
LOC: ERS 23:52
DX: T39.1X2A Poisoning by 4-Aminophenol derivatives, intentional self-harm, initial encounter (principal); T40.2X2A Poisoning by other opioids, intentional self-harm, initial encounter; R45.851 Suicidal ideations; E11.9 Type 2 diabetes mellitus without complications; E78.00 Pure hypercholesterolemia, unspecified; Z79.899 Other long term (current) drug therapy; Z79.4 Long term (current) use of insulin; Z20.822 Contact with and (suspected) exposure to COVID-19
CPT/HCPCS: 36415; 36416; 80053; 80143; 80306; 80307; 84703; 85025; 93005; J1815; U0002

== ENCOUNTER 2021-12-24 12:45 | Outpatient (CLI) | payer OTHER ==
[2021-12-24 14:17] LABS: Hemoglobin 14.4 g/dL (12.0-15.5); Mean Corpuscular Hemoglobin 29.1 pg (27.0-33.0); Mean Corpuscular Volume 88.5 fl (81.6-98.3); Mean Platelet Volume 12.7 fl (7.4-10.4); Platelet Count 201 10x3/uL (150-450); RBC Distribution Width 13.4 % (11.5-14.5); Red Blood Cell (RBC) Count 4.94 10x6/uL (3.90-5.03); White Blood Cell (WBC) Count 9.9 10x3/uL (3.5-10.5)
[2021-12-24 14:34] LABS: Anion Gap 16 mmol/L (10-20); BUN (Urea Nitrogen) 8 mg/dL (7.0-18.7); Calc. Creatinine Clearance 0 mL/min (70-130); Calcium 9.7 mg/dL (7.8-10.44); Carbon Dioxide 23 mmol/L (22-29); Chloride 106 mmol/L (98-107); Glucose 77 mg/dL (70-105); Potassium 4.8 mmol/L (3.5-5.1); Sodium 140 mmol/L (136-145)
[2021-12-25 00:24] LABS: SARS-CoV-2 PCR by NAA Not Detected (NotDetected)
== END 2021-12-24 12:46 | disposition home or self-care (01) ==
LOC: LABBT 12:45
PROVIDERS: ATTEND Orthopaedic Surgery
DX: Z01.818 Encounter for other preprocedural examination (principal); Z20.822 Contact with and (suspected) exposure to COVID-19
CPT/HCPCS: 80048; 85027; 93005; 93010; U0003; U0005

== ENCOUNTER 2021-12-27 10:17 | Day surgery (SDC) | payer OTHER ==
[2021-12-25 10:57] VITALS: BMI 48.6
[2021-12-27] MEDS ORDERED: fentaNYL Citrate/PF 100 MCG/2 ML SYRINGE ONE (11:59)
[2021-12-27] MEDS ORDERED: Ropivacaine 0.5% HCl/PF (150 MG/30 ML VIAL) ONE (13:13)
[2021-12-27] MEDS ORDERED: PROPOFOL 200 MG/20 ML VIAL ONE (13:13)
[2021-12-27] MEDS ORDERED: Lidocaine 1% PF 5 ML VIAL ONE (13:13)
[2021-12-27] MEDS ORDERED: Succinylcholine 200 MG/10 ml SYRINGE FS ONE (13:13)
[2021-12-27] MEDS ORDERED: Ondansetron PF 4 MG/2 ML Vial ONE (13:13)
== END 2021-12-27 15:55 | disposition home or self-care (01) ==
LOC: SDC 10:17
PROVIDERS: ATTEND Orthopaedic Surgery
PROC: 0RNKXZZ Release Left Shoulder Joint, External Approach (ICD-10-PCS; principal; 2021-12-27)
DX: M75.02 Adhesive capsulitis of left shoulder (principal); E11.9 Type 2 diabetes mellitus without complications; Z79.4 Long term (current) use of insulin; Z79.899 Other long term (current) drug therapy; Z88.8 Allergy status to other drugs, medicaments and biological substances; Z98.890 Other specified postprocedural states
CPT/HCPCS: 36416; J2405; J2704; J2795